=== PATIENT | female | born 1980 | race Caucasian/White ===

== ENCOUNTER 2024-01-16 19:48 | Outpatient (CLI) | payer OTHER, SELFPAY ==
[2024-01-16 20:32] LABS: Basophils # 0.1 K/mm3 (0-0.2); Basophils % 0.9 % (0.1-2.0); Eosinophils # 0.2 K/mm3 (0.0-0.4); Eosinophils % 3.5 % (0.1-12.0); Hematocrit 37.4 % (37.0-47.0); Hemoglobin 12.1 g/dL (12.2-16.2); Lymphocytes % 29.1 % (10-50); Mean Corpuscular HGB Conc 32.5 g/dL (31.8-35.4); Mean Corpuscular Hemoglobin 26.1 pg (27.0-31.2); Mean Corpuscular Volume 80.3 fl (81-99); Mean Platelet Volume 9.1 fl (7.4-10.4); Monocytes # 0.4 K/mm3 (0.1-1.0); Monocytes % 6.2 % (1.7-9.3); Neutrophils % 60.2 % (37.0-80.0); Platelet Count 361 K/mm3 (142-424); Red Blood Count 4.66 M/mm3 (4.20-5.40); Red Cell Distribution Width 14.3 % (11.5-17.5); White Blood Count 6.7 K/mm3 (4.8-10.8)
[2024-01-16 20:49] LABS: Alanine Aminotransferase 19 U/L (12-78); Albumin Level 3.9 g/dl (3.5-5.0); Albumin/Globulin Ratio 1.4 (1.1-1.8); Alkaline Phosphatase 81 U/L (38-126); Aspartate Amino Transferase 24 U/L (14-36); Bilirubin,Total 0.5 mg/dl (0.2-1.3); Blood Urea Nitrogen 11 mg/dl (7-17); Calcium 8.9 mg/dl (8.4-10.2); Carbon Dioxide 24 mmol/L (22.0-30.0); Chloride 104 mmol/L (98-107); Chol/HDL Ratio 5.4 (1-3.5); Cholesterol 217 mg/dl (140-200); Estimated Glomerular Filt Rate 110 ml/min (>60); GFR (African American) 133 ML/MIN (>60); Globulin 2.7 g/dL (1.3-3.2); Glucose 83 mg/dl (74-100); HDL Cholesterol 40 mg/dl (40-60); Sodium 133 mmol/L (136-145); Total Protein,Serum 6.6 g/dl (6.3-8.2); Triglycerides 204 mg/dl (30-150); VLDL Cholesterol 41 mg/dL (0-40)
[2024-01-16 21:01] LABS: Direct LDL Cholesterol 134.68 mg/dL (100-129)
[2024-01-16 21:06] LABS: 25-OH Vitamin D, Total 31.4 ng/mL (30-100)
[2024-01-16 21:08] LABS: Free T4 (Free Thyroxine) 0.97 ng/dl (0.78-2.19)
[2024-01-16 21:22] LABS: Thyroid Stimulating Hormone 2.06 uIU/mL (0.465-4.68)
[2024-01-16 21:42] LABS: Vitamin B12 324 pg/mL (239-931)
[2024-01-16 22:00] LABS: Hemoglobin A1C 5.3 % (4.0-6.0)
== END 2024-01-16 23:59 | disposition home or self-care (01) ==
LOC: LAB.DROPOF 19:49
PROVIDERS: PCP Nurse Practitioner; Visit Provider Nurse Practitioner
DX: E03.9 Hypothyroidism, unspecified (principal); E55.9 Vitamin D deficiency, unspecified; Z13.1 Encounter for screening for diabetes mellitus; Z13.220 Encounter for screening for lipoid disorders
CPT/HCPCS: 80050; 80053; 80061; 82306; 82607; 83036; 84439; 84443; 85025

== ENCOUNTER 2024-07-24 12:23 | Outpatient (CLI) | payer OTHER, SELFPAY ==
[2024-07-24 19:44] LABS: HCG Qualitative, Serum Negative (Negative)
[2024-07-24 19:50] LABS: Chol/HDL Ratio 4.3 (1-3.5); Cholesterol 206 mg/dl (140-200); HDL Cholesterol 48 mg/dl (40-60); Triglycerides 190 mg/dl (30-150); VLDL Cholesterol 38 mg/dL (0-40)
[2024-07-24 20:02] LABS: Direct LDL Cholesterol 124.57 mg/dL (100-129)
[2024-07-24 20:12] LABS: T4 (Thyroxine) 10.1 ug/dl (5.53-11.0)
[2024-07-24 20:25] LABS: Thyroid Stimulating Hormone 2.05 uIU/mL (0.465-4.68)
[2024-07-25 02:52] LABS: Chlamydia trachomatis Negative (Negative); Neisseria gonorrhoeae Negative (Negative); Trichomonas vaginalis Negative (Negative)
[2024-07-25 09:52] LABS: RPR W/RFX Titers Nonreactive (Nonreactive)
[2024-07-26 21:17] LABS: Neisseria gonorrhoeae, NAA Negative (Negative)
== END 2024-07-24 23:59 | disposition home or self-care (01) ==
LOC: LAB.DROPOF 07-26 12:23
PROVIDERS: PCP Family Medicine; Visit Provider Family Medicine
DX: E03.9 Hypothyroidism, unspecified (principal); E78.5 Hyperlipidemia, unspecified; Z20.2 Contact with and (suspected) exposure to infections with a predominantly sexual mode of transmission
CPT/HCPCS: 80061; 80074; 84436; 84443; 84703; 86592; 86803; 87491; 87529; 87591; 87661

== ENCOUNTER 2025-01-24 09:02 | Outpatient (CLI) | payer OTHER, SELFPAY ==
[2025-01-24 15:05] LABS: Hematocrit 37.7 % (37.0-47.0); Hemoglobin 12.0 g/dL (12.2-16.2); Immature Granulocytes % 0.3 %; Mean Corpuscular HGB Conc 31.8 g/dL (31.8-35.4); Mean Corpuscular Hemoglobin 26.3 pg (27.0-31.2); Mean Corpuscular Volume 82.5 fl (81-99); Nucleated Red Blood Cells % 0 %; Platelet Count 326 K/mm3 (142-424); Red Blood Count 4.57 M/mm3 (4.20-5.40); Red Cell Distribution Width-SD 41.1 fL; White Blood Count 8.6 K/mm3 (4.8-10.8)
[2025-01-24 15:53] LABS: Alanine Aminotransferase 18 U/L (12-78); Albumin Level 4.1 g/dl (3.5-5.0); Albumin/Globulin Ratio 1.3 (1.1-1.8); Alkaline Phosphatase 88 U/L (38-126); Anion Gap 11.2 mEq/L (5-15); Aspartate Amino Transferase 21 U/L (14-36); Bilirubin,Total 0.4 mg/dl (0.2-1.3); Blood Urea Nitrogen 17 mg/dl (7-17); Calcium 9.8 mg/dl (8.4-10.2); Carbon Dioxide 26 mmol/L (22.0-30.0); Chloride 100 mmol/L (98-107); Cholesterol 245 mg/dl (140-200); Creatinine,Serum 0.60 mg/dl (0.52-1.04); Estimated Glomerular Filt Rate 110 ml/min (>60); GFR (African American) 133 ML/MIN (>60); Globulin 3.2 g/dL (1.3-3.2); Glucose 83 mg/dl (74-100); HDL Cholesterol 49 mg/dl (40-60); Potassium 4.2 mmoL/L (3.5-5.1); Sodium 133 mmol/L (136-145); Total Protein,Serum 7.3 g/dl (6.3-8.2); Triglycerides 333 mg/dl (30-150)
[2025-01-24 16:24] LABS: Thyroid Stimulating Hormone 3.40 uIU/mL (0.465-4.68)
[2025-01-24 16:46] LABS: Hepatitis C Ab Qual. W/ RFX NEGATIVE (Negative)
== END 2025-01-24 23:59 ==
LOC: LAB.DROPOF 01-28 09:03
PROVIDERS: PCP Family Medicine; Visit Provider Family Medicine
DX: E03.9 Hypothyroidism, unspecified (principal); Z11.59 Encounter for screening for other viral diseases; E16.2 Hypoglycemia, unspecified
CPT/HCPCS: 80053; 80061; 84443; 85025; 86803; 87389

== ENCOUNTER 2025-02-28 23:50 | Emergency (ER) | payer OTHER, SELFPAY ==
--- OUTSIDE RECORDS SUMMARY | 2025-02-12 14:23 | XMS_ITS | Encounter Summary ---
Author Organization [place] [address] Care Team Providers Care Gauntlet Pairer Name Role Phone No Pcp, Per Patient Primary Care Provider Iva franco Reason for Visit * Reason Comments Foot Injury Pt c/o left foot inj ury r/t a fall on ice about 2 hours [employer]. Pt reports hearing multiple pops during fall and then when getting up. CPTA, Advil x4 about 2 hours [employer] Encounter Details Date Type Department Care Team (Late st Contact Info) Description 02/12/2025 2:23 PM EST - 02/12/2025 3:42 PM EST Emergency [facility] [address] [facility] [place] [address] Dakota Houser MD [address] [place] [id number] Closed fracture of distal end of left fibula, unspecified fracture morphology, initial encounter (Primary Dx) Discharge Disposition: Home or Self Care Social History Tobacco Use Types Packs/Day Years Used Date Smoking Tobacco: Never Smokeless Tobacco: Never Alcohol Use Standard Drinks/Week Comments No 0 (1 standard drink = 0.6 oz pur e alcohol) Overall Financial Resource Strain (CARDIA) Answe r Date Recorded How hard is it for you to pa y for the very basics like food, housing, medical care, and heating? Not very hard 12/03/2019 PHQ-2 Answer Date Recorded PHQ-2 Total Score 0 02/25/2023 Hunger Vital Sign Answer Date Recorded Within the past 12 months, y ou worried that your food would run out before you got the money to buy more. Never true 12/03/19 20 Within the past 12 months, t he food you bought just didn't last and you didn't have money to get more. Never true 12/03/2019 PRAPARE - Transportation Answer Date Re corded In the past 12 months, has l ack of transportation kept you from medical appointments or from getting medications? No 11/13 In the past 12 months, has l ack of transportation kept you from meetings, work, or from getting things needed for daily living? No 12/03/2019 Sexually Active Control Partners Comments Yes Male Comments No Sex and Gender Information Value Date Recorded Sex Assigned at Female 02/21/2025 9:10 AM EST Legal Sex Female 2:38 AM EDT Gender Identity Not on file Sexual Orientation Not on file documented as of this encounter Last Filed Vital Signs Vital Sign Reading Time Taken Comments Blood Pressure 126/89 02/12/2025 2:21 PM EST Pulse 76 02/12/2025 2:12 PM EST Temperature 36.6 C (97.9 F) 02/12/2025 2:21 PM EST Respiratory Rate 24 02/12/2025 2:12 PM EST Oxygen Saturation 100% 02/12/2025 2:12 PM EST Inhaled Oxygen Concentration - - Weight - - Height - - Body Mass Index - - documented in this encounter Functional Status * Is the person deaf or does he/she have serious difficulty hearing? Answer Date of Assessment Author No 10/02/2021 3:09 PM Freida Yañez MA * Is the person blind or does he/she have serious difficulty seeing even when wearing glasses? Answer Date of Assessment Author No 10/02/2021 3:09 PM Freida Yañez MA * Does this person have serious difficulty walking or climbing stairs? Answer Date of Assessment Author No 10/02/2021 3:09 PM Freida Yañez MA * Does this person have difficulty dressing or bathing? Answer Date of Assessment Author No 10/02/2021 3:09 PM Freida Yañez MA * Because of a physical, mental or emotional condition, does this person have difficulty doing errands alone such as visiting a doctor's office or shopping? Answer Date of Assessment Author No 10/02/2021 3:09 PM EDT Freida Wyatt MA documented as of this encounter Mental Status * Because of a physical, mental or emotional condition, does this person have serious difficulty concentrating, remembering or making decisions? Answer Entry Date Author No 10/02/2021 3:09 PM EDT Freida Wyatt MA documented in this encounter Discharge Instructions * Discharge Instructions* Melly Robbins APRN - 02/12/2025 2:50 PM EST Ibuprofen every 8 hours for pain You can take 1 Percocet every 8 hours as needed for severe pain. Do not drive or drink alcohol withtaking this medication Follow-up with orthopedics for visit to soon as possible No weightbearing until you follow-up with orthopedics * Attachments The following attachments cannot be sent through Care Everywhere. * Lower leg fracture (Haitian) documented in this encounter Medications at Time of Discharge albuterol (PROVENTIL HFA;VENTOLIN HFA) 90 mcg/actuation Inhl HFA Aerosol InhalerIndicatio ns:Nasal sinus congestion Inhale 2 Puffs into the lungs every 4 hours as needed for Wheezing. 1 Each 2 4 atorvastatin (LIPITOR) 20 mg Oral Tablet Take 20 mg by mouth daily. 5 cholecalciferol, vitamin D3, 25 mcg (1,000 unit) Oral Tablet Take 1,000 Units by mouth daily. 5 EPINEPHrine (EPIPEN) 0.3 mg/0.3 mL Inj Auto-Injector Inject 0.3 mg into the muscle as needed. 5 famotidine (PEPCID) 20 mg Oral Tablet Take 20 mg by mouth daily. 5 fexofenadine (DEVAN) 180 mg Oral Tablet Take 180 mg by mouth every 24 hours. 5 ibuprofen (ADVIL;MOTRIN) 600 mg Oral Tablet Take 1 Tablet by mouth every 8 hours as needed for Pain for up to 30 days. 30 Tablet 5 03/14/19 26 LEVOthyroxine (SYNTHROID) 25 mcg Oral TabletIndication s:Hypothyroidism (acquired) Take 1 Tablet by mouth daily. 90 Tablet 4 loratadine (CLARITIN REDITABS) 10 mg Oral Tablet, Rapid Dissolve Dissolve 10 mg by mouth daily. 5 sertraline (ZOLOFT) 100 mg Oral Tablet Take 75 mg by mouth nightly. 5 triamcinolone (KENALOG) 0.1 % Top CreamIndications :Rash Apply topically 2 times daily. 80 g 2 3 ALBUTEROL INHL Inhale into the lungs. 02/22/20 25 Ceramides 1,3,6-11 (CERAVE DAILY MOISTURIZING) Top LotionIndication s:Dry skin APPLY TOPICALLY TO AFFECTED AREA NEEDED 355 mL 3 02/22/20 25 fluticasone propionate (FLONASE) 50 mcg/actuation Nasl Harbert, SuspensionIndica tions:Nasal sinus congestion by Nasal route daily. 02/22/20 25 fluticasone propionate (FLONASE) 50 mcg/actuation Nasl Harbert, SuspensionIndica tions:Nasal sinus congestion 1 Harbert by Nasal route daily. 1 Each 2 4 02/22/20 25 hydrocortisone (ANUSOL-HC) 25 mg Rect SuppositoryIndic ations:Hemorrhoi ds, unspecified hemorrhoid type Place 1 Suppository rectally every 12 hours. 12 Suppository 2 3 02/22/20 25 hyoscyamine (ANASPAZ;LEVSIN) 0.125 mg Oral TabletIndication s:Irritable bowel syndrome with diarrhea Take 1 Tablet by mouth every 4 hours as needed for Cramping or Diarrhea. 90 Tablet 2 3 02/22/20 25 methylPREDNISolo ne (MEDROL DOSPACK) 4 mg Oral Tablets, Dose PackIndications: Nasal sinus congestion See package instructions 21 Tablet 4 02/22/20 25 omeprazole (PRILOSEC) 40 mg Oral Capsule, Delayed Release(E.C.)Ind ications:Gastroe sophageal reflux disease with esophagitis, unspecified whether hemorrhage Take 1 Capsule by mouth daily. 90 Capsule 1 3 02/22/20 25 oxyCODONE-acetam inophen (PERCOCET) 5-325 mg Oral Tablet Take 1 Tablet by mouth every 8 hours as needed for Acute Pain (R52) for up to 3 days. 9 Tablet 5 02/16/20 25 documented as of this encounter Ordered Prescriptions Prescription Sig Dispense Quantity Refills Last Filled Start Date End Date ibuprofen (ADVIL;MOTRIN) 600 mg Oral Tablet Take 1 Tablet by mouth every 8 hours as needed for Pain for up to 30 days. 30 Tablet 02/12/2025 03/14/2025 oxyCODONE-acetamin ophen (PERCOCET) 5-325 mg Oral Tablet Take 1 Tablet by mouth every 8 hours as needed for Acute Pain (R52) for up to 3 days. 9 Tablet 02/12/2025 02/15/2025 documented in this encounter Discharge Disposition Disposition Code Departure Means Destination Comment s Home or Self Residential documented in this encounter ED Notes * Melly Robbins, MEDICARE CONTACT SPECIALIST - 02/12/2025 2:09 PM EST Chief Complaint Patient presents with Foot Injury Pt c/o left foot injury r/t a fall on ice about 2 hours [employer]. Pt reports hearing multiple pops during fall and then when getting up. CPTA, Advil x4 about 2 hours [employer] Patient seen for supervising physician, Dr. Houser. Patient is a 44-year-old female who presents 2 hours after slipping on ice with her left ankle twisting underneath her. States she was wearing cowboy boots and was unable to walk afterwards. Complains of pain to the ankle and distal lower extremity. Took ibuprofen prior to arrival. Foot Injury Patient History Allergies[1] Home Medications: Prior to Admission medications Medication Sig Start Date End Date Last Dose Authorizing Provider cholecalciferol, vitamin D3, 25 mcg (1,000 unit) Oral Tablet Take 1,000 Units by mouth daily. 01/24/25 Taking Provider, Historical famotidine (PEPCID) 20 mg Oral Tablet Take 20 mg by mouth daily. 12/03/24 Taking Provider, Historical LEVOthyroxine (SYNTHROID) 25 mcg Oral Tablet Take 1 Tablet by mouth daily. 07/28/23 02/12/2025 Morning Arlene Austin DO loratadine (CLARITIN REDITABS) 10 mg Oral Tablet, Rapid Dissolve Dissolve 10 mg by mouth daily. 01/29/25 Taking Provider, Historical albuterol (PROVENTIL HFA;VENTOLIN HFA) 90 mcg/actuation Inhl HFA Aerosol Inhaler Inhale 2 Puffs into the lungs every 4 hours as needed for Wheezing. 07/27/23 Jarred Cole APRN ALBUTEROL INHL Inhale into the lungs. Patient not taking: Reported on 07/27/2023 Provider, Historical Ceramides 1,3,6-11 (CERAVE DAILY MOISTURIZING) Top Lotion APPLY TOPICALLY TO AFFECTED AREA NEEDED 10/11/22 Samanta Faye MD fluticasone propionate (FLONASE) 50 mcg/actuation Nasl Harbert, Suspension by Nasal route daily. Patient not taking: Reported on 10/06/2024 Provider, Historical fluticasone propionate (FLONASE) 50 mcg/actuation Nasl Harbert, Suspension 1 Harbert by Nasal route daily. 07/27/23 Jarred Cole APRN hydrocortisone (ANUSOL-HC) [address] 1 Suppository rectally every 12 hours. Patient not taking: Reported on 07/27/2023 02/25/23 Samanta Faey MD hyoscyamine (ANASPAZ;LEVSIN) 0.125 mg Oral Tablet Take 1 Tablet by mouth every 4 hours as needed for Cramping or Diarrhea. Patient not taking: Reported on 07/27/2023 02/25/23 Samanta Faye MD ibuprofen (ADVIL;MOTRIN) 600 mg Oral Tablet Take 1 Tablet by mouth every 8 hours as needed for Painfor up to 30 days. 02/12/25 03/14/25 Melly Robbins APRN methylPREDNISolone (MEDROL DOSPACK) 4 mg Oral Tablets, Dose Pack See package instructions Patient not taking: Reported on 10/06/2024 07/27/23 Jarred Cole APRN omeprazole (PRILOSEC) 40 mg Oral Capsule, Delayed Release(E.C.) Take 1 Capsule by mouth daily. Patient not taking: Reported on 10/06/2024 02/25/23 Samanta Faye MD oxyCODONE-acetaminophen (PERCOCET) 5-325 mg Oral Tablet Take 1 Tablet by mouth every 8 hours as needed for Acute Pain (R52) for up to 3 days. 02/12/25 02/15/25 Melly Robbins APRN triamcinolone (KENALOG) 0.1 % Top Cream Apply topically 2 times daily. Patient not taking: Reported on 07/27/2023 02/25/23 Samanta Faye MD Past Medical History: Past Medical History[2] Social History: reports that she has never smoked. She has never used smokeless tobacco. She reports being sexually active and has had partner(s) who are male. She reports that she does not drink alcohol and does not use drugs. E-Cigarettes (such as Vapes or Juul) E-Cigarette Use Never User Family History: Family History[3] Surgical History: Surgical History[4] Review of Systems Review of Systems Constitutional: Negative for appetite change, chills, diaphoresis and fatigue. Musculoskeletal: Positive for arthralgias and joint swelling. Negative for gait problem. Left ankle swelling and pain. Skin: Negative for color change and wound. Physical Exam Blood pressure 126/89, pulse 76, temperature 97.9 ??F (36.6 ??C), temperature source Oral, resp. rate (!) 24, SpO2 100%, not currently . Physical Exam Vitals reviewed. Constitutional: General: She is not in acute distress. Appearance: She is not ill-appearing, toxic-appearing or diaphoretic. HENT: Head: Normocephalic and atraumatic. Nose: Nose normal. Mouth/Throat: Mouth: Mucous membranes are moist. Eyes: Pupils: Pupils are equal, round, and reactive to light. Cardiovascular: Rate and Rhythm: Normal rate. Pulmonary: Effort: Pulmonary effort is normal. Abdominal: Palpations: Abdomen is soft. Musculoskeletal: General: Swelling, tenderness and signs of injury present. No deformity. Right lower leg: Edema present. Comments: Pain and swelling to the bilateral malleoli of the left ankle. No ecchymosis or erythema.Patient is unable to flex or extend due to pain. She is able to wiggle her toes and has 2+ pedal pulse. Full sensation in distal toes. Good cap refill. There are some tenderness to palpation in the distal anterior and posterior lower extremity. Compartments are soft. Skin: General: Skin is warm and dry. Capillary Refill: Capillary refill takes less than 2 seconds. Neurological: General: No focal deficit present. Mental Status: She is alert and oriented to person, place, and time. Procedures Radiology/EKG/Labs: Results for orders placed or performed during the hospital encounter of 02/12/25 XR ANKLE LEFT AP LATERAL AND OBLIQUE Narrative XR ANKLE LEFT AP LATERAL AND OBLIQUE, 02/12/2025 2:41 PM CLINICAL HISTORY: -injury COMPARISON: None. PROCEDURE COMMENTS: XR ANKLE LEFT AP LATERAL AND OBLIQUE FINDINGS: There is a minimally displaced fracture involving the distal fibula at the level the ankle joint. Ankle mortise alignment is within normal limits on provided views. Soft tissue swelling around the ankle. Impression Minimally displaced distal fibular fracture at the level the ankle joint. - Note: Radiology results need to be interpreted within a comprehensive clinical context. If you have questions about the radiology report, please contact the office of the ordering clinician. XR FOOT LEFT AP LATERAL AND OBLIQUE Narrative XR FOOT LEFT AP LATERAL AND OBLIQUE, 02/12/2025 2:41 PM CLINICAL HISTORY: -injury COMPARISON: None. PROCEDURE COMMENTS: XR FOOT LEFT AP LATERAL AND OBLIQUE FINDINGS: No acute fracture or traumatic malalignment. Joint spaces overall well-maintained for age. No periostitis. Impression No acute bony abnormality of the foot. - Note: Radiology results need to be interpreted within a comprehensive clinical context. If you have questions about the radiology report, please contact the office of the ordering clinician. XR TIBIA FIBULA LEFT AP AND LATERAL Narrative XR TIBIA FIBULA LEFT AP AND LATERAL, 02/12/2025 2:49 PM CLINICAL HISTORY: -fall onto left ankle, distal ankle pain COMPARISON: None. PROCEDURE COMMENTS: Orthogonal views of the tibia and fibula. Minimum of two images. FINDINGS: Minimally displaced distal fibular fracture. No proximal fracture. Impression Minimally displaced distal fibular fracture. This examination does not constitute a diagnostic evaluation of the knee or ankle. If the patient has symptoms localizing to those areas then supplemental dedicated imaging recommended. - Note: Radiology results need to be interpreted within a comprehensive clinical context. If you have questions about the radiology report, please contact the office of the ordering clinician. ED Course: Appropriate laboratory and radiology studies reviewed ED Course as of 02/12/25 1626 Others' Documentation e Feb 12, 2025 5050 I, Dakota Houser MD, independently reviewed patient's x-ray left ankle with study showing distal fibular fracture. Of note, this interpretation is independent of radiologist read and is not intended to supersede that read. [JM] ED Course User Index [JM] Dakota Houser MD Medications Ordered: Medications oxyCODONE-acetaminophen (PERCOCET) 5-325 mg per tablet 1 Tablet (1 Tablet Oral Given 02/12/25 4765) ED Clinical Impression: 1. Closed fracture of distal end of left fibula, unspecified fracture morphology, initial encounter MDM Medical Decision Making Patient is a well-appearing 44-year-old female who presents for evaluation of left ankle pain aftera fall today 2 hours prior to arrival. On exam there is objective swelling around the bilateral malleoli. Patient is unable to flex or extend the ankle due to pain. No objective signs of compartment syndrome. She is neurovascularly intactdistally. There is no obvious deformity. X-rays revealed a minimally displaced fibula fracture without any bony abnormality of the tibia or the foot bones. Patient was treated with Percocet and placed in a short leg posterior and stirrup splint. She was given crutches and instructed on nonweightbearing and to follow-up with orthopedics to soon as possible for further management. She is discharged with a prescription for ibuprofen and a short course of Percocet. She is in agreement with the plan. Patient was discharged in stable condition. Prescriptions Written: ED Current Prescriptions Medication Dispense Auth. Provider ibuprofen (ADVIL;MOTRIN) 600 mg Oral Tablet 30 Tablet Blank, Melly Deal, MEDICARE CONTACT SPECIALIST oxyCODONE-acetaminophen (PERCOCET) 5-325 mg Oral Tablet 9 Tablet Blank, Melly Deal, MEDICARE CONTACT SPECIALIST At time of discharge patient appears stable, nontoxic, tolerating PO and appropriate for outpatientmanagement. Strict return precautions discussed for new or worsening symptoms. Condition at Discharge/Transfer from Department: Stable In cases where narcotics are prescribed, LENNY/INSPECT report was obtained and reviewed. After examining available information, and risks of prescribing or dispensing controlled substances was explained to the patient (including non- treatment or other treatment), it is considered medically appropriate to administer narcotics as prescribed. This chart was completed using voice recognition technology and may contain unintended errors [1] Allergies Allergen Reactions Mucinex [Guaifenesin] Anaphylaxis Droperidol Other (See Comments) Made her very loopy, anxious, fatigue Vicodin [Hydrocodone-Acetaminophen] Rash [2] Past Medical History: Diagnosis Date Disorder of thyroid [3] Family History Problem Relation Age of Onset Hypertension Mother Cancer Paternal Aunt Heart Disease Maternal Grandmother Thyroid Disease Maternal Grandmother Diabetes Paternal Grandmother [4] Past Surgical History: Procedure Laterality Date APPENDECTOMY OVARY SURGERY unknown right TUBAL LIGATION 2010 Melly Robbins APRN 02/12/25 1626 Cosigned by Dakota Houser MD at 02/15/2025 8:05 AM EST Associated attestation - Dakota Houser MD - 02/15/2025 8:05 AM EST [place]akota MD, independently saw and evaluated patient with JENSEN. I have contributed to patient's medical decision making and agree with plan. ED Course as of 02/15/25 0805 Dakota Houser's Documentation TueFeb 12, 2025 0744 Dakota Linares MD, independently reviewed patient's x-ray left ankle with study showing distal fibular fracture. Of note, this interpretation is independent of radiologist read and is not intended to supersede that read. documented in this encounter Plan of Treatment Upcoming Encounters Date Type Department Care Team (Late st Contact Info) Description 03/05/2025 9:30 [place] [address] Ulises Ayoub PA [address] [place] [address] documented as of this encounter Goals Goal Patient Goal Type Associated Problems Recent Progress Patient-Stated? Author Maintain a healthy diet, exercise regularly and maintain an ideal body weight General No Nel Madden RMA documented as of this encounter Procedures Procedure Name Priority Date/Time Associated Diagnosis Comments XR TIBIA FIBULA LEFT AP AND LATERAL LOVE 02/12/2025 2:49 PM EST XR FOOT LEFT AP LATERAL AND OBLIQUE LOVE 02/12/2025 2:41 PM EST XR ANKLE LEFT AP LATERAL AND OBLIQUE LOVE 02/12/2025 2:41 PM EST documented in this encounter Results * XR TIBIA FIBULA LEFT AP AND LATERAL (02/12/2025 2:49 PM EST) Anatomical Region Laterality Modality Leg Radiographic Jahaira ging 02/12/2025 2:49 PM EST Impressions 02/12/2025 2:55 PM EST Minimally displaced distal fibular fracture. This examination does not constitute a diagnostic evaluation of the knee or ankle. If the patient has symptoms localizing to those areas then supplemental dedicated imaging recommended. - Note: Radiology results need to be interpreted within a comprehensive clinical context. If you have questions about the radiology report, please contact the office of the ordering clinician. Narrative 02/12/2025 2:55 PM EST XR TIBIA FIBULA LEFT AP AND LATERAL, 02/12/2025 2:49 PM CLINICAL HISTORY: -fall onto left ankle, distal ankle pain COMPARISON: None. PROCEDURE COMMENTS: Orthogonal views of the tibia and fibula. Minimum of two images. FINDINGS: Minimally displaced distal fibular fracture. No proximal fracture. Procedure Note Ton Arnett MD - 02/12/2025 XR TIBIA FIBULA LEFT AP AND LATERAL, 02/12/2025 2:49 PM CLINICAL HISTORY: -fall onto left ankle, distal ankle pain COMPARISON: None. PROCEDURE COMMENTS: Orthogonal views of the tibia and fibula. Minimum oftwo images. FINDINGS: Minimally displaced distal fibular fracture. No proximal fracture. IMPRESSION: Minimally displaced distal fibular fracture. This examination does not constitute a diagnostic evaluation of the kneeor ankle. If the patient has symptoms localizing to those areas thensupplemental dedicated imaging recommended. - Note: Radiology results need to be interpreted within a comprehensiveclinical context. If you have questions about the radiology report, please contactthe office of the ordering clinician. Melly Robbins [facility] DIAGNOSTIC IMAGING ORDERABLES Final Result * XR FOOT LEFT AP LATERAL AND OBLIQUE (02/12/2025 2:41 PM EST) Anatomical Region Laterality Modality Foot Radiographic Jahaira ging 02/12/2025 2:41 PM EST Impressions 02/12/2025 2:55 PM EST No acute bony abnormality of the foot. - Note: Radiology results need to be interpreted within a comprehensive clinical context. If you have questions about the radiology report, please contact the office of the ordering clinician. Narrative 02/12/2025 2:55 PM EST XR FOOT LEFT AP LATERAL AND OBLIQUE, 02/12/2025 2:41 PM CLINICAL HISTORY: -injury COMPARISON: None. PROCEDURE COMMENTS: XR FOOT LEFT AP LATERAL AND OBLIQUE FINDINGS: No acute fracture or traumatic malalignment. Joint spaces overall well-maintained for age. No periostitis. Procedure Note Ton Arnett MD - 02/12/2025 XR FOOT LEFT AP LATERAL AND OBLIQUE, 02/12/2025 2:41 PM CLINICAL HISTORY: -injury COMPARISON: None. PROCEDURE COMMENTS: XR FOOT LEFT AP LATERAL AND OBLIQUE FINDINGS: No acute fracture or traumatic malalignment. Joint spaces overall well-maintained for age. No periostitis. IMPRESSION: No acute bony abnormality of the foot. - Note: Radiology results need to be interpreted within a comprehensiveclinical context. If you have questions about the radiology report, please contactthe office of the ordering clinician. Melly Deal Itzel [facility] DIAGNOSTIC IMAGING ORDERABLES Final Result * XR ANKLE LEFT AP LATERAL AND OBLIQUE (02/12/2025 2:41 PM EST) Anatomical Region Laterality Modality Ankle Radiographic Jahaira ging 02/12/2025 2:41 PM EST Impressions 02/12/2025 2:54 PM EST Minimally displaced distal fibular fracture at the level the ankle joint. - Note: Radiology results need to be interpreted within a comprehensive clinical context. If you have questions about the radiology report, please contact the office of the ordering clinician. Narrative 02/12/2025 2:54 PM EST XR ANKLE LEFT AP LATERAL AND OBLIQUE, 02/12/2025 2:41 PM CLINICAL HISTORY: -injury COMPARISON: None. PROCEDURE COMMENTS: XR ANKLE LEFT AP LATERAL AND OBLIQUE FINDINGS: There is a minimally displaced fracture involving the distal fibula at the level the ankle joint. Ankle mortise alignment is within normal limits on provided views. Soft tissue swelling around the ankle. Procedure Note Ton Arnett MD - 02/12/2025 XR ANKLE LEFT AP LATERAL AND OBLIQUE, 02/12/2025 2:41 PM CLINICAL HISTORY: -injury COMPARISON: None. PROCEDURE COMMENTS: XR ANKLE LEFT AP LATERAL AND OBLIQUE FINDINGS: There is a minimally displaced fracture involving the distal fibula at thelevel the ankle joint. Ankle mortise alignment is within normal limits onprovided views. Soft tissue swelling around the ankle. IMPRESSION: Minimally displaced distal fibular fracture at the level the anklejoint. - Note: Radiology results need to be interpreted within a comprehensiveclinical context. If you have questions about the radiology report, please contactthe office of the ordering clinician. Melly Robbins APRN [facility] DIAGNOSTIC IMAGING ORDERABLES Final Result documented in this encounter Visit Diagnoses Diagnosis Closed fracture of distal end of left fibula, unspecified fracture morphology, initial encounter- Primary documented in this encounter Administered Medications Inactive Administered Medications - up to 1 most recent administrations Medication Order MAR Action Action Date Dose Rate Site oxyCODONE-acetaminophen (PERCOCET) 5-325 mg per tablet 1 Tablet 1 Tablet, Oral, ONCE, 1 dose, On Tue02/12/25 at 1445, *Maximum adult dose of acetaminophen is 4000 mg from all sources in 24 hours.* Given 02/12/2025 2:47 PM EST 1 Tablet documented in this encounter Historical Medications * This list may reflect changes made after this encounter. loratadine (CLARITIN REDITABS) 10 mg Oral Tablet, Rapid Dissolve Dissolve 10 mg by mouth daily. 01/29/2025 famotidine (PEPCID) 20 mg Oral Tablet Take 20 mg by mouth daily. 12/03/2024 cholecalciferol, vitamin D3, 25 mcg (1,000 unit) Oral Tablet Take 1,000 Units by mouth daily. 01/24/2025 added in this encounter Active and Recently Administered Medications Times are shown in EST. Scheduled Medication Order 02/10/2025 02/11/2025 02/12/2025 oxyCODONE-acetaminophen (PERCOCET) 5-325 mg per tablet 1 Tablet (COMPLETED) 1 Tablet, Oral, ONCE, 1 dose, On Tue02/12/25 at 1445, *Maximum adult dose of acetaminophen is 4000 mg from all sources in 24 hours.* 1447 (Given - Provid er: Garfield Sabillon RN) documented in this encounter Orders Nursing Count Last Ordered Date First Orde red Date ED [facility] DME 1 02/12/2025 SPLINT, CUSTOM 2 02/12/2025 documented in this encounter Care Teams [employer] Relationship Specialty Start Date End Date No Pcp, Per Patient PCP - General 09/29/24 documented as of this encounter
--- OUTSIDE RECORDS SUMMARY | 2025-02-15 13:26 | XMS_ITS | Encounter Summary ---
Author Organization [place] [address] Care Team Providers Care Welder/Fitter Name Role Phone No Pcp, Per Patient Primary Care Provider Iva franco Reason for Visit * Reason Comments Ankle Pain Pt to ED with /co le ft ankle pain. Pt fell breaking her ankle 3 days ago. Pt fell again yesterday. Pt has not seen ortho yet. Encounter Details Date Type Department Care Team (Late st Contact Info) Description 02/15/2025 1:26 PM EST - 02/15/2025 3:13 PM EST Emergency [facility] [address] [place] [address] Lionel Rodriguez MD [address] [place] [id number] Traumatic closed displaced fracture of distal end of left tibia with fibula, sequela (Primary Dx); Fall on ice; Seasonal allergic rhinitis, unspecified trigger Discharge Disposition: Home or Self Care Social [...] Sign Reading Time Taken Comments Blood Pressure 131/79 02/15/2025 1:32 PM EST Pulse 75 02/15/2025 1:27 PM EST Temperature 36.8 C (98.3 F) 02/15/2025 1:32 PM EST Respiratory Rate 16 02/15/2025 1:27 PM EST Oxygen Saturation 97% 02/15/2025 1:27 PM EST Inhaled Oxygen Concentration - - Weight 81.6 kg (180 lb) 02/15/2025 1:27 PM EST Height 157.5 cm (5' 2 ) 02/15/2025 1:27 PM EST Body Mass Index 32.92 02/15/2025 1:27 PM EST documented in this encounter Functional Status * Is the person deaf or does he/she have serious difficulty hearing? Answer Date of Assessment Author No 10/02/2021 3:09 PM EDFreida Valenzuela MA * Is the person blind or does he/she have serious difficulty seeing even when wearing glasses? Answer Date of Assessment Author No 10/02/2021 3:09 PM Freida Yñaez MA * Does this person have serious difficulty walking or climbing stairs? Answer Date of Assessment Author No 10/02/2021 3:09 PM EDT Freida Wyatt MA * Does this person have difficulty dressing or bathing? Answer Date of Assessment Author No 10/02/2021 3:09 PM EDT Freida Wyatt MA * Because of a physical, mental [...] this encounter Discharge Instructions * Discharge Instructions* Jennifer Naik, SHERI - 02/15/2025 2:47 PM EST Keep walking boot in place at all times while up. Wear jesu wraps to reduce swelling until cleared by the bone doctor. Use the walker for weight bearing as tolerated. Only use the crutches when there is low risk of falling, particularly on wet or icy surfaces. Elevate the injury. May apply ice packs for 20 minutes at a time every hour while awake. Do not letthe ice packs leak on the splint. The ice packs should just keep area cool, it is not necessary to freeze the skin. Take ibuprofen for swelling and pain. May also take tylenol. Keep appointment with ortho doctor for follow-up as scheduled. Return to the emergency department or recheck right away for any worsening symptoms such as severe pain, severe swelling, if the area gets cold blue or numb, or for any new or rapidly changing symptoms. For allergic rhinitis: Drink plenty of fluids, teas, soups to keep mucus thin. Use fluticasone nasal spray daily, 2 sprays in each nostril to keep congestion down, this helps with ear and sinus congestion. Continue Claritin daily for allergy control. Should start to feel better in 2-3 days. Recheck with family doctor in 5-7 days if not improving. Return to the ED for any worsening symptoms, severe pain, high fever, shortness of breath, chest pain, abdomen pain, vomiting, fainting, or for any new or rapidly changing symptoms. documented in this encounter Medications at Time [...] mg by mouth every 24 hours. 5 fluticasone propionate (FLONASE) 50 mcg/actuation Nasl Packwood, Suspension 2 Sprays by Nasal route daily for 14 days. 15.8 mL 5 03/01/20 25 ibuprofen (ADVIL;MOTRIN) 600 mg Oral Tablet Take [...] 25 fluticasone propionate (FLONASE) 50 mcg/actuation Nasl Packwood, SuspensionIndica tions:Nasal sinus congestion by Nasal route daily. 02/22/20 25 fluticasone propionate (FLONASE) 50 mcg/actuation Nasl Packwood, SuspensionIndica tions:Nasal sinus congestion 1 Packwood by Nasal route daily. 1 Each 2 [...] Refills Last Filled Start Date End Date fluticasone propionate (FLONASE) 50 mcg/actuation Nasl Packwood, Suspension 2 Sprays by Nasal route daily for 14 days. 15.8 mL 02/15/2025 03/01/2025 documented in this encounter Discharge Disposition Disposition Code Departure Means Destination Comment s Home or Self Group Home documented in this encounter ED Notes * Nancy Watson RN - 02/15/2025 1:33 PM EST Pt here f/u with ankle pain, stating she is unable to get in with ortho until next week and has fallen again and thinks she has injured the leg more. Wants splint readjusted causing pain in leg. * Jennifer Naik APRN - 02/15/2025 1:23 PM EST CHIEF COMPLAINT Chief Complaint Patient presents with ??? Ankle Pain Pt to ED with /co left ankle pain. Pt fell breaking her ankle 3 days ago. Pt fell again yesterday. Pt has not seen ortho yet. HPI Lorie Contreras, 44 y.o. presents for evaluation of increased pain and swelling to the left lower leg and ankle over the past 2 days. Patient states she fell in the ice 2 or 3 days ago, she was seen hereand told that she had multiple fractures. She states that she fell again on the ice yesterday when she was trying to get into her truck to go to the orthopedist. She reports that she reinjured the left leg and ankle. She states that she noted that she had enough swelling that she felt like the splint was too tight. She removed the splint and reapplied it and reports that the splint is botheringher. She reports that she has had difficulty ambulating with the crutches because they have been very slippery, particularly with the ice. She states that she did reschedule that orthopedist appointment. She denies any other injuries. Denies striking her head, denies any back or other extremity injury with the second fall. She has been taking the Percocet she was prescribed, taking approximately 1 daily. She reports the pain has been significant but has been avoiding taking too much pain medications. Additionally patient reports that she has had increased nasal congestion and postnasal drip and waswondering if she could get something to prevent this from turning into bronchitis. She states she does take [id number] antihistamine daily. Patient denies any wheezes, fever, shortness of breath. She does report a mild cough. Significant co-morbidities: Allergic rhinitis, hypothyroidism, hyperlipidemia, intermittent mild asthma, history of tubal ligation and appendectomy Significant social/determinants of health: Non-smoker History is from the patient and chart review. REVIEW OF SYSTEMS See HPI for further details. Review of systems otherwise negative. PAST MEDICAL HISTORY Past Medical History[1] FAMILY HISTORY Family History[2] SOCIAL HISTORY Social History[3] Social Drivers of Health with Concerns Alcohol Use: Not on file Physical Activity: Not on file Stress: Not on file Social Connections: Not on file Intimate Partner Violence: Not on file Housing Stability: Not on file Utilities: Not on file Health Literacy: Not on file SURGICAL HISTORY Surgical History[4] CURRENT MEDICATIONS Medications ordered prior to the current encounter[5] ALLERGIES Allergies as of 02/15/2025 - Verified 02/15/2025 Allergen Reaction Noted ??? Mucinex [guaifenesin] Anaphylaxis 02/12/2025 ??? Droperidol Other (See Comments) 02/25/2023 ??? Vicodin [hydrocodone-acetaminophen] Rash 08/03/2015 PHYSICAL EXAM VITAL SIGNS: Vitals: 02/15/25 1327 02/15/25 1330 02/15/25 1332 BP: 137/79 131/79 BP Location: Right arm Patient Position: Semi Fowlers Pulse: 75 Resp: 16 Temp: 98.3 ??F (36.8 ??C) TempSrc: Oral SpO2: 97% Weight: 180 lb (81.6 kg) Height: 5' 2 (1.575 m) Body mass index is 32.92 kg/m??. Constitutional: Well developed, Well nourished, No acute distress, Non-toxic appearance. HENT: Normocephalic, Atraumatic, Bilateral external ears normal, bilateral TMs are intact with air-fluid levels, negative tragus or mastoid tenderness, tonsils are absent surgically, positive cobblestoning noted in posterior pharynx, speech is clear, oropharynx moist, No oral exudates, Nose normal.Nontender sinuses. Eyes: PERRLA, EOMI, Conjunctiva normal, No discharge. Neck: Normal range of motion, Supple, No stridor. Cardiovascular: Normal heart rate Thorax & Lungs: Normal respiratory effort, No respiratory distress, No wheezing, no rhonchi, nocough Abdomen: No tenderness Skin: Warm, Dry, No erythema, No rash. Back: No midline tenderness, No CVA tenderness. Extremities: Intact distal pulses, No cyanosis, No clubbing, left foot with 1+ edema, positive bruising noted at bilateral malleoli, with bilateral malleolar edema and yellowish discoloration runningfrom the mid tib-fib to the ankle. Generalized point tenderness bilaterally to the malleoli and to the anterior tib-fib. Left knee is intact without point tenderness, edema and with good range of motion. Reduced range of motion of left ankle. Musculoskeletal: Otherwise, good range of motion in all other major joints. No tenderness to palpation or major deformities noted. Neurologic: Alert & oriented, Normal motor function, Normal sensory function, No focal deficitsnoted. EKG/LAB/RADIOLOGY/PROCEDURES Results for orders placed or performed during the hospital encounter of 02/15/25 XR ANKLE LEFT AP LATERAL AND OBLIQUE Narrative XR ANKLE LEFT AP LATERAL AND OBLIQUE, 02/15/2025 2:05 PM CLINICAL HISTORY: -fell again, recent fracture to same ankle COMPARISON: None. PROCEDURE COMMENTS: XR ANKLE LEFT AP LATERAL AND OBLIQUE FINDINGS: The current fracture of the distal fibula with minimal posterior translation of 2 mm unchanged alignment from the previous study. Ankle mortise remains congruent. No soft tissue gas. No new fracture. Impression Unchanged alignment of distal fibular fracture. No new fracture. - Note: Radiology results need to be interpreted within a comprehensive clinical context. If you have questions about the radiology report, please contact the office of the ordering clinician. XR TIBIA FIBULA LEFT AP AND LATERAL Narrative XR TIBIA FIBULA LEFT AP AND LATERAL, 02/15/2025 2:12 PM CLINICAL HISTORY: -concern for new fracture, fell with re-injury with recent fracture COMPARISON: None. PROCEDURE COMMENTS: Orthogonal views of the tibia and fibula. Minimum of two images. FINDINGS: Obliquely oriented fracture noted at the distal fibula is unchanged in alignment. No new fracture. Soft tissue swelling is present but no soft tissue gas. Impression Unchanged alignment of distal fibular fracture. No new fracture. This examination does not constitute a diagnostic evaluation of the knee or ankle. If the patient has symptoms localizing to those areas then supplemental dedicated imaging recommended. - Note: Radiology results need to be interpreted within a comprehensive clinical context. If you have questions about the radiology report, please contact the office of the ordering clinician. COURSE & MEDICAL DECISION MAKING Pertinent Labs & Imaging studies reviewed. (See chart for details) Lorie Contreras , 44 y.o., presents for evaluation of increasing pain, swelling, and reinjury of left ankle and left lower leg on ice, as described above. Patient is afebrile, non-toxic, with no increased work of breathing, is oxygenating well and is hemodynamically stable. Patient is neurovascularly intact, there is significant swelling and discoloration of the left lower leg and ankle. This is an isolated injury. There is no clinical evidence of pne umonia. There is no evidence of otitis media or sinusitis. There is no clinical evidence of asthma exacerbation patient is not tachycardic, does not present with shortness of breath or chest pain to suggest development of PE. Exam is consistent with: Recent injury with nondisplaced tibial fracture of the left lower leg withreinjury. Allergic rhinitis. Differential diagnoses: New fracture, displacement of known fracture Acute illness: Yes Exacerbation of chronic condition: Likely exacerbation of allergic rhinitis ED Course as of 02/15/25 1506 Jennifer Naik's Documentation TueFeb 15, 2025 1427 Left ankle and tib/fib x-rays per radiologist: The current fracture of the distal fibula with minimal posterior translation of 2 mm unchanged alignment from the previous study. Ankle mortise remains congruent. No soft tissue gas. No new fracture. 1431 Since patient is not tolerating the posterior and sugar tong splint and has fallen again with the crutches, in order to prevent a subsequent fall will change the immobilization strategy. Will place patient in cotton cast to reduce swelling, a CAM boot and provide a walker for weight bearing astolerated since the fracture is isolated to the potentially non-weight bearing fibula. 1453 Neurovascular intact /stable after splinting as compared to prior to splinting; splint is appropriately placed. 1506 Patient was offered a walker but changed her mind about it. She declined the walker for now. Patient advised to add fluticasone to her allergic rhinitis regimen. Patient instructed on use of CAM boot, walker, and advised weight bearing as tolerated with use of walker will provide more safety and prevent further falls. She was also advised to keep appointment she has already scheduled with the orthopedist. ED Current Prescriptions Medication Dispense Auth. Provider fluticasone propionate (FLONASE) 50 mcg/actuation Nasl Packwood, Suspension 15.8 mL Tacy, Jennifer M, CLIENT BUSINESS MANAGER Patient is advised on home care and to follow up with PCP and ortho in next 3-4 days. The patient is advised to return for worsening symptoms; is in agreement with treatment plan. FINAL IMPRESSION 1. Traumatic closed displaced fracture of distal end of left tibia with fibula, sequela 2. Fall on ice 3. Seasonal allergic rhinitis, unspecified trigger Patient's condition at disposition: stable This chart was completed using voice recognition technology and may contain unintended errors Jennifer Naik, CLIENT BUSINESS MANAGER 02/15/25 3144 [1] Past Medical History: Diagnosis Date ??? Disorder of thyroid [2] Family History Problem Relation Age of Onset ??? Hypertension Mother ??? Cancer Paternal Aunt ??? Heart Disease Maternal Grandmother ??? Thyroid Disease Maternal Grandmother ??? Diabetes Paternal Grandmother [3] Social History Socioeconomic History ??? Marital status: Single Spouse name: None ??? Number of children: None ??? Years of education: None ??? Highest education level: None Tobacco Use ??? Smoking status: Never ??? Smokeless tobacco: Never Vaping Use ??? Vaping status: Never Used Substance and Sexual Activity ??? Alcohol use: No ??? Drug use: No ??? Sexual activity: Yes Partners: Male Social Drivers of Health Financial Resource Strain: Low Risk (12/03/2019) Overall Financial Resource Strain (CARDIA) ??? Difficulty of Paying Living Expenses: Not very hard Food Insecurity: No Food Insecurity (12/03/2019) Hunger Vital Sign ??? Worried About Running Out of Food in the Last Year: Never true ??? Ran Out of Food in the Last Year: Never true Transportation Needs: No Transportation Needs (12/03/2019) PRAPARE - Transportation ??? Lack of Transportation (Medical): No ??? Lack of Transportation (Non-Medical): No [4] Past Surgical History: Procedure Laterality Date ??? APPENDECTOMY ??? OVARY SURGERY unknown right ??? TUBAL LIGATION 2010 [5] No current facility-administered medications on file prior to encounter. Current Outpatient Medications on File Prior to Encounter Medication Sig Dispense Refill ??? albuterol (PROVENTIL HFA;VENTOLIN HFA) 90 mcg/actuation Inhl HFA Aerosol Inhaler Inhale 2 Puffsinto the lungs every 4 hours as needed for Wheezing. 1 Each 2 ??? ALBUTEROL INHL Inhale into the lungs. (Patient not taking: Reported on 07/27/2023) ??? Ceramides 1,3,6-11 (CERAVE DAILY MOISTURIZING) Top Lotion APPLY TOPICALLY TO AFFECTED AREA NEEDED 355 mL 0 ??? cholecalciferol, vitamin D3, 25 mcg (1,000 unit) Oral Tablet Take 1,000 Units by mouth daily. ??? famotidine (PEPCID) 20 mg Oral Tablet Take 20 mg by mouth daily. ??? fluticasone propionate (FLONASE) 50 mcg/actuation Nasl Packwood, Suspension by Nasal route daily. (Patient not taking: Reported on 10/06/2024) ??? fluticasone propionate (FLONASE) 50 mcg/actuation Nasl Packwood, Suspension 1 Packwood by Nasal routedaily. 1 Each 2 ??? hydrocortisone (ANUSOL-HC) [address] 1 Suppository rectally every 12 hours. (Patient not taking: Reported on 07/27/2023) 12 Suppository 2 ??? hyoscyamine (ANASPAZ;LEVSIN) 0.125 mg Oral Tablet Take 1 Tablet by mouth every 4 hours as needed for Cramping or Diarrhea. (Patient not taking: Reported on 07/27/2023) 90 Tablet 2 ??? ibuprofen (ADVIL;MOTRIN) 600 mg Oral Tablet Take 1 Tablet by mouth every 8 hours as needed for Pain for up to 30 days. 30 Tablet 0 ??? LEVOthyroxine (SYNTHROID) 25 mcg Oral Tablet Take 1 Tablet by mouth daily. 90 Tablet 0 ??? loratadine (CLARITIN REDITABS) 10 mg Oral Tablet, Rapid Dissolve Dissolve 10 mg by mouth daily. ??? methylPREDNISolone (MEDROL DOSPACK) 4 mg Oral Tablets, Dose Pack See package instructions (Patient not taking: Reported on 10/06/2024) 21 Tablet 0 ??? omeprazole (PRILOSEC) 40 mg Oral Capsule, Delayed Release(E.C.) Take 1 Capsule by mouth daily. (Patient not taking: Reported on 10/06/2024) 90 Capsule 1 ??? oxyCODONE-acetaminophen (PERCOCET) 5-325 mg Oral Tablet Take 1 Tablet by mouth every 8 hours asneeded for Acute Pain (R52) for up to 3 days. 9 Tablet 0 ??? triamcinolone (KENALOG) 0.1 % Top Cream Apply topically 2 times daily. (Patient not taking: Reported on 07/27/2023) 80 g 2 Cosigned by Lionel Rodriguez MD at 02/17/2025 11:55 AM EST Associated attestation - Lionel Rodriguez MD - 02/17/2025 11:55 AM EST I have reviewed the chief complaint and history of the present illness and review of systems as well as the past medical/social/family history sections for this patient. I have participated in the care of this patient. I personally approve the management plan for this patient and take responsibility for the patient management. I interpreted EKG/x-rays independently and the results were as: X-ray ankle left AP lateral oblique 2:05 PM unchanged alignment of distal fibular fracture no new fracture X-ray tibia fibula left AP and lateral 2:12 PM no significant change in alignment, no new fracture This chart was completed using voice recognition technology and may contain unintended errors documented in this encounter Plan of Treatment Upcoming Encounters Date Type Department Care Team (Late st Contact Info) Description 03/05/2025 9:30 AM [place] [address] Ulises Ayoub PA [address] [place] [address] documented as of this encounter Goals Goal Patient Goal Type Associated Problems Recent Progress Patient-Stated? Author Maintain a healthy diet, exercise regularly and maintain an ideal body weight General No Nel Madden RMA documented as of this encounter Procedures Procedure Name Priority Date/Time Associated Diagnosis Comments XR TIBIA FIBULA LEFT AP AND LATERAL LOVE 02/15/2025 2:12 PM EST XR ANKLE LEFT AP LATERAL AND OBLIQUE LOVE 02/15/2025 2:05 PM EST documented in this encounter Results * XR TIBIA FIBULA LEFT AP AND LATERAL (02/15/2025 2:12 PM EST) Anatomical Region Laterality Modality Leg Radiographic Jahaira ging 02/15/2025 2:12 PM EST Impressions 02/15/2025 2:15 PM EST Unchanged alignment of distal fibular fracture. No new fracture. This examination does not constitute a diagnostic evaluation of the knee or ankle. If the patient has symptoms localizing to those areas then supplemental dedicated imaging recommended. - Note: Radiology results need to be interpreted within a comprehensive clinical context. If you have questions about the radiology report, please contact the office of the ordering clinician. Narrative 02/15/2025 2:15 PM EST XR TIBIA FIBULA LEFT AP AND LATERAL, 02/15/2025 2:12 PM CLINICAL HISTORY: -concern for new fracture, fell with re-injury with recent fracture COMPARISON: None. PROCEDURE COMMENTS: Orthogonal views of the tibia and fibula. Minimum of two images. FINDINGS: Obliquely oriented fracture noted at the distal fibula is unchanged in alignment. No new fracture. Soft tissue swelling is present but no soft tissue gas. Procedure Note Karely Mckenna MD - 02/15/2025 XR TIBIA FIBULA LEFT AP AND LATERAL, 02/15/2025 2:12 PM CLINICAL HISTORY: -concern for new fracture, fell with re-injury withrecent fracture COMPARISON: None. PROCEDURE COMMENTS: Orthogonal views of the tibia and fibula. Minimum oftwo images. FINDINGS: Obliquely oriented fracture noted at the distal fibula isunchanged in alignment. No new fracture. Soft tissue swelling is present but no softtissue gas. IMPRESSION: Unchanged alignment of distal fibular fracture. No new fracture. This examination does not constitute a diagnostic evaluation of the kneeor ankle. If the patient has symptoms localizing to those areas thensupplemental dedicated imaging recommended. - Note: Radiology results need to be interpreted within a comprehensiveclinical context. If you have questions about the radiology report, please contactthe office of the ordering clinician. Jennifer Naik APRN IMG DIAGNOSTIC IMAGING ORDERA BLES Final Result * XR ANKLE LEFT AP LATERAL AND OBLIQUE (02/15/2025 2:05 PM EST) Anatomical Region Laterality Modality Ankle Radiographic Jahaira ging 02/15/2025 2:05 PM EST Impressions 02/15/2025 2:18 PM EST Unchanged alignment of distal fibular fracture. No new fracture. - Note: Radiology results need to be interpreted within a comprehensive clinical context. If you have questions about the radiology report, please contact the office of the ordering clinician. Narrative 02/15/2025 2:18 PM EST XR ANKLE LEFT AP LATERAL AND OBLIQUE, 02/15/2025 2:05 PM CLINICAL HISTORY: -fell again, recent fracture to same ankle COMPARISON: None. PROCEDURE COMMENTS: XR ANKLE LEFT AP LATERAL AND OBLIQUE FINDINGS: The current fracture of the distal fibula with minimal posterior translation of 2 mm unchanged alignment from the previous study. Ankle mortise remains congruent. No soft tissue gas. No new fracture. Procedure Note Karely Mckenna MD - 02/15/2025 XR ANKLE LEFT AP LATERAL AND OBLIQUE, 02/15/2025 2:05 PM CLINICAL HISTORY: -fell again, recent fracture to same ankle COMPARISON: None. PROCEDURE COMMENTS: XR ANKLE LEFT AP LATERAL AND OBLIQUE FINDINGS: The current fracture of the distal fibula with minimalposterior translation of 2 mm unchanged alignment from the previous study. Anklemortise remains congruent. No soft tissue gas. No new fracture. IMPRESSION: Unchanged alignment of distal fibular fracture. No new fracture. - Note: Radiology results need to be interpreted within a comprehensiveclinical context. If you have questions about the radiology report, please contactthe office of the ordering clinician. Jennifer Naik APRN IMG DIAGNOSTIC IMAGING ORDERA BLES Final Result documented in this encounter Visit Diagnoses Diagnosis Traumatic closed displaced fracture of distal end of left tibia with fibula, sequela- Primary Fall on ice Seasonal allergic rhinitis, unspecified trigger documented in this encounter Orders Nursing Count Last Ordered Date First Orde red Date ED [facility] 1 02/15/2025 NURSING COMMUNICATION 1 02/15/2025 documented in this encounter Care Teams Welder/Fitter Relationship Specialty Start Date End Date No Pcp, Per Patient PCP - General 09/29/24 documented as of this encounter
--- OUTSIDE RECORDS SUMMARY | 2025-02-19 14:45 | XMS_ITS | Encounter Summary ---
Author Organization [facility] Address [address] [place] [address] Care Team Providers Care Sand Conditioner Name Role Phone No Pcp, Per Patient Primary Care Provider Iva franco Reason for Referral * Surgical (Routine) - AFF Authorization Not Needed Specialty Diagnoses / Procedures Referred By Contac t Referred To Contact Diagnoses Closed displaced fracture of lateral malleolus of left fibula, initial encounter Procedures AMB [facility] SURGERY COMMUNICATION ORDER Barron Pickett MD [address] [place] [address] Phone: tel: fax: Referral ID Status Reason Start Date Expiration Date Visits Requested Visits Authorized [id number] AFF Authorization Not Needed 02/19/2025 02/19/2026 1 1 Reason for Visit * Reason Comments Pain Encounter Details Date Type Department Care Team (Late st Contact Info) Description 02/19/2025 2:45 [place] [address] Barron Pickett MD [address] [place] [address] Closed displaced fracture of lateral malleolus of left fibula, initial encounter (Primary Dx) Social History Tobacco Use Types Packs/Day Years [...] on file documented as of this encounter Functional Status * Is the [...] No 10/02/2021 3:09 PM Freida Yañez MA documented as of this encounter Mental Status * Because of a physical, mental or emotional condition, does this person have serious difficulty concentrating, remembering or making decisions? Answer Entry Date Author No 10/02/2021 3:09 PM Freida Yañez MA documented in this encounter Progress Notes * Barron Pickett MD - 02/19/2025 2:45 PM EST Images from the original note were not included. Barron Pickett MD Orthopaedic Trauma [facility] [phone] Lorie Ben CC: Left ankle injury 44 y.o. female Injured Left Ankle ankle 7 days ago. Referred to me by [facility] Mechanism: simple fall. Was seen in ED on 02/12 and injury diagnosed, Was splinted and she reports splint was poor and she had another fall. She presented back and she was changed to a fracture boot Reports pain and swelling Left ankle and she describes it as severe Not able to bear weight PHYSICAL EXAMINATION: General: Well appearing with appropriate affect. No acute distress. Skin: Skin is warm and dry. Color natural. See below for specific extremity. Neuro: Alert and oriented to person, place and time. Normal neurosensory response to touch. Pulmonary: Chest expansion appears symmetric and unlabored. Cardiovascular: No signs of peripheral edema. Lymphatic: No signs of lymphangitis. Musculoskeletal: Left ankle: Positive lateral tenderness. No medial tenderness Moderate swelling and some variable ecchymosis Achilles intact. Calf soft Palpable DP and brisk capillary refill No gross dermatomal deficits Motor strength inhibited by pain. Able to move toes and ankle. Contralateral exam is nontender with palpation. Full motion and strength. No instabilities. XRAYS: Left ankle films from 02/12 and 02/15 from [facility] show a displaced lateral malleolus fracture with medial clear space widened IMPRESSION: Left Ankle ankle lateral malleolus fracture PLAN: Recommend open reduction internal fixation for church of normal anatomy, stability, healing and return of function. Risks, benefits and alternatives of surgery discussed. The patient and/or their family members were given ample opportunity to ask questions and questions answered to their satisfaction. We discussed the goals of surgery, expectations and post-operative course. Well-padded splint applied. We will transition back to fracture boot in post-op period Counseled on strict nonweightbearing and swelling control. Pre-operative paperwork completed today. Work Plan: discussed and note given I offered surgery tomorrow vs Tuesday and she has elected for Tuesday to make arrangements I look forward to seeing Lorie Contreras on the planned date of surgery. I had an extensive conversation with the patient and/or family regarding the risks, benefits, potential complication and reasonable expectations of the planned procedure. Informed verbal consent was given under no distress. We had ample opportunities for questions regarding the usual outcomes. Risks specifically discussed, but not limited to the following, include possible: bleeding, blood clots,anesthesia complications, nerve and blood vessel injury, loss of reduction (if fracture), infection, re-tear or re-injury, hardware breakage or failure (if used), need for additional surgery, and post-operative stiffness. In addition; in rare cases the patient may have loss of a limb (ex;severe uncontrolled infection) or even . No guarantee of any particular results were given. The patient understands that in some cases surgery can make them worse. The patient and family desired that we proceed with the operation and expressed clear understanding. Barron Pickett MD Orthopaedic Trauma [facility] [phone] documented in this encounter Plan of Treatment Upcoming Encounters Date Type Department Care Team (Late st Contact Info) Description 03/05/2025 9:30 [place] [address] Ulises Ayoub PA [address] [place] [address] documented as of this encounter Goals Goal Patient Goal Type Associated Problems Recent Progress Patient-Stated? Author Maintain a healthy diet, exercise regularly and maintain an ideal body weight General No Nel Madden, SYDNEE documented as of this encounter Visit Diagnoses Diagnosis Closed displaced fracture of lateral malleolus of left fibula, initial encounter- Primary documented in this encounter Orders Nursing Count Last Ordered Date First Orde red Date AMB [facility] SURGERY COMMUNICATION ORDER 1 2024 documented in this encounter Care Teams Sand Conditioner Relationship Specialty Start Date End Date No Pcp, Per Patient PCP - General 09/29/24 documented as of this encounter
--- OUTSIDE RECORDS SUMMARY | 2025-02-22 06:29 | XMS_ITS | Encounter Summary ---
Author Organization [place] [address] Care Team Providers Care Shuttler Car Name Role Phone No Pcp, Per Patient Primary Care Provider Iva franco Reason for Visit * Auth/Cert/Inpt Specialty Diagnoses / Procedures Referred By Contac t Referred To Contact Diagnoses Closed displaced fracture of lateral malleolus of left fibula, initial encounter Closed displaced fracture of lateral malleolus of left fibula, initial encounter [S82.62XA] Procedures NV OPEN TX DISTAL FIBULAR FRACTURE LAT MALLEOLUS OPEN REDUCTION INTERNAL FIXATION LEFT LATERAL MALLEOLUS Referral ID Status Reason Start Date Expiration Date Visits Re quested Visits Authorized [id number] 1 1 Encounter Details Date Type Department Care Team (Latest Contact Info) Description 02/22/2025 6:29 AM EST - 02/22/2025 9:49 AM EST Hospital Encounter [facility] [address] [place] [address] Barron Pickett MD [address] [place] [address] Closed displaced fracture of lateral malleolus of left fibula, initial encounter Discharge Disposition: Home or Self Care Social History Tobacco Use Types Packs/Day Years Used Date Smoking Tobacco: Never Passive Smoke Exposure: Past Smokeless Tobacco: Never Tobacco Cessation:Counseling Given: Not Answered Comments:passive: mother in household Alcohol Use Standard Drinks/Week Comments No 0 [...] Sign Reading Time Taken Comments Blood Pressure 133/79 02/22/2025 9:37 AM EST Pulse 70 02/22/2025 9:37 AM EST Temperature 36.1 C (97 F) 02/22/2025 9:37 AM EST Respiratory Rate 16 02/22/2025 9:37 AM EST Oxygen Saturation 100% 02/22/2025 9:37 AM EST Inhaled Oxygen Concentration - - Weight 77.7 kg (171 lb 3.2 oz) 02/22/2025 6:53 A M EST Height 157.5 cm (5' 2 ) 02/22/2025 6:53 AM EST Body Mass Index 31.31 02/22/2025 6:53 AM EST documented in this encounter Functional Status * Is the person deaf or does he/she have serious difficulty hearing? Answer Date of Assessment Author No 10/02/2021 3:09 PM EDT Freida Wyatt MA * Is the person blind or does he/she have serious difficulty seeing even when wearing glasses? Answer Date of Assessment Author No 10/02/2021 3:09 PM EDFreida Valenzuela MA * Does this person have serious [...] Freida Yañez MA documented in this encounter Discharge Instructions * Discharge Instructions* Barron Pickett MD - 02/22/2025 6:52 AM EST Images from the original note were not included. Nonweightbearing on your left foot and ankle Elevate left foot and ankle for swelling control Maintain splint and dressing clean and dry Use pain medication as directed Follow up as scheduled for post-op care +++++++++++++++++++++++++++++++++++++++++++++++++++++++++++++++++++ [facility] Discharge Instructions - Following Anesthesia We appreciate the opportunity to care for you today! Here are a few reminders as you head home: A responsible adult, 18 years or older must be in attendance until tomorrow morning. Rest quietly today. May resume usual diet as tolerated or as directed by your surgeon. Do not drive or operate any machinery until tomorrow morning or as instructed. Do not make any legal or important decisions for the next 24 hours. Do not drink alcoholic beverages or take sleeping pills for 24 hours unless otherwise directed. If you received a nerve block for post-operative pain control, protect your blocked arm/leg. It maybe numb. Carefully pad your limb to prevent pressure sores and other injuries. Be careful with applying cold/warm to the blocked limb. Numbness will alter the sensation of the limb and could damage your skin if you cannot correctly feel the temperature. If you have questions or concerns regarding your anesthesia experience, please call our office at . Get Well Soon! [facility] +++++++++++++++++++++++++++++++++++++++++++++++++++++++++++++++++++ * Attachments The following attachments cannot be sent through Care Everywhere. * How to use an incentive spirometer (Ghanaian) documented in this encounter Medications at Time of Discharge albuterol (PROVENTIL HFA;VENTOLIN HFA) 90 mcg/actuation Inhl HFA Aerosol InhalerIndicatio ns:Nasal sinus congestion Inhale 2 Puffs into the lungs every 4 hours as needed for Wheezing. 1 Each 2 07/27/2023 atorvastatin (LIPITOR) 20 mg Oral Tablet Take 20 mg by mouth daily. 02/04/2025 cholecalciferol, vitamin D3, 25 mcg (1,000 unit) Oral Tablet Take 1,000 Units by mouth daily. 01/24/2025 EPINEPHrine (EPIPEN) 0.3 mg/0.3 mL Inj Auto-Injector Inject 0.3 mg into the muscle as needed. 01/30/2025 famotidine (PEPCID) 20 mg Oral Tablet Take 20 mg by mouth daily. 12/03/2024 fexofenadine (DEVAN) 180 mg Oral Tablet Take 180 mg by mouth every 24 hours. 01/24/2025 fluticasone propionate (FLONASE) 50 mcg/actuation Nasl [place], Suspension 2 Sprays by Nasal route daily for 14 days. 15.8 mL 02/15/2025 12/19/202 5 ibuprofen (ADVIL;MOTRIN) 600 mg Oral Tablet Take 1 Tablet by mouth every 8 hours as needed for Pain for up to 30 days. 30 Tablet 02/12/2025 LEVOthyroxine (SYNTHROID) 25 mcg Oral TabletIndication s:Hypothyroidism (acquired) Take 1 Tablet by mouth daily. 90 Tablet 07/28/2023 loratadine (CLARITIN REDITABS) 10 mg Oral Tablet, Rapid Dissolve Dissolve 10 mg by mouth daily. 01/29/2025 nalOXone (NARCAN) 4 mg/actuation Nasl [place], Non-Aerosol [place] the contents of one device (0.1mL) into one nostril upon signs of opioid overdose. Call 911. May repeat dose in other nostril if no response within 2-3 minutes. 2 Each 02/22/2025 oxyCODONE-acetam inophen (PERCOCET) 5-325 mg Oral TabletIndication s:Closed displaced fracture of lateral malleolus of left fibula, initial encounter Take 1 Tablet by mouth every 6 hours as needed for Acute Pain > 3 Days Medically Necessary (R52) or Major Surgery/Trauma (G89.18) for up to 5 days. Post-op medication. Can be filled 02/25/25 20 Tablet 02/25/2025 5 sertraline (ZOLOFT) 100 mg Oral Tablet Take 75 mg by mouth nightly. 01/24/2025 triamcinolone (KENALOG) 0.1 % Top CreamIndications :Rash Apply topically 2 times daily. 80 g 2 02/25/2023 oxyCODONE-acetam inophen (PERCOCET) 5-325 mg Oral Tablet Take 1 Tablet by mouth every 6 hours as needed for Acute Pain > 3 Days Medically Necessary (R52) for up to 5 days. Post-op medication 20 Tablet 02/22/2025 5 documented as of this encounter Ordered Prescriptions Prescription Sig Dispense Quantity Refills Last Filled Start Date End Date oxyCODONE-acetamin ophen (PERCOCET) 5-325 mg Oral TabletIndications: Closed displaced fracture of lateral malleolus of left fibula, initial encounter Take 1 Tablet by mouth every 6 hours as needed for Acute Pain > 3 Days Medically Necessary (R52) or Major Surgery/Trauma (G89.18) for up to 5 days. Post-op medication. Can be filled 02/25/25 20 Tablet 02/25/2025 nalOXone (NARCAN) 4 mg/actuation Nasl [place], Non-Aerosol [place] the contents of one device (0.1mL) into one nostril upon signs of opioid overdose. Call 911. May repeat dose in other nostril if no response within 2-3 minutes. 2 Each 02/22/2025 oxyCODONE-acetamin ophen (PERCOCET) 5-325 mg Oral Tablet Take 1 Tablet by mouth every 6 hours as needed for Acute Pain > 3 Days Medically Necessary (R52) for up to 5 days. Post-op medication 20 Tablet 02/22/2025 5 documented in this encounter Discharge Disposition Disposition Code Departure Means Destination Comment s Home or Self Care Car Home documented in this encounter Progress Notes * Barron Pickett MD - 02/22/2025 7:15 AM EST Patient seen and examined in preop holding Plans again discussed and questions answered Risks, benefits and alternatives of treatment (again) discussed as well as goals, expectations and post-operative course. Patient given ample opportunity to ask questions and questions answered Site marked Antibiotics ordered (if indicated) To OR when ready for ORIF Left lateral malleolus Post-op: PACU and dc home documented in this encounter H&P Notes * Ignacia Gomez NP - 02/22/2025 7:02 AM EST Images from the original note were not included. History and Physical Name: Lorie Contreras : 1980 AGE: 44 y.o. PCP: No Pcp, Per Patient Admitting Physician: Barron Pickett MD Date of Admit: 02/22/2025 Chief complaint: Closed displaced fracture of lateral malleolus of left fibula, initial encounter [S82.62XA] HPI: This is a 44 y.o. year old female patient who presents today for surgical treatment of the above problem. Reports fell in snow on 02/12/25 resulting in left lateral malleolus fibula fracture. Reports has fall 2 other times since initial fall but denies injury. Denies syncope. Reports left ankle variable pain and burning. Reports swelling and bruising of left ankle/foot. Past Medical History[1] Surgical History[2] Medications ordered prior to the current encounter[3] Allergies[4] Social History Socioeconomic History Marital status: Single Spouse name: Not on file Number of children: Not on file Years of education: Not on file Highest education level: Not on file Occupational History Not on file Tobacco Use Smoking status: Never Passive exposure: Past Smokeless tobacco: Never Tobacco comments: passive: mother in household Vaping Use Vaping status: Never Used Substance and Sexual Activity Alcohol use: No Drug use: No Sexual activity: Yes Partners: Male Other Topics Concern Not on file Social History Narrative Not on file Social Drivers of Health Financial Resource Strain: Low Risk (12/03/2019) Overall Financial Resource Strain (CARDIA) Difficulty of Paying Living Expenses: Not very hard Food Insecurity: No Food Insecurity (12/03/2019) Hunger Vital Sign Worried About Running Out of Food in the Last Year: Never true Ran Out of Food in the Last Year: Never true Transportation Needs: No Transportation Needs (12/03/2019) PRAPARE - Transportation Lack of Transportation (Medical): No Lack of Transportation (Non-Medical): No Physical Activity: Not on file Stress: Not on file Social Connections: Not on file Intimate Partner Violence: Not on file Housing Stability: Not on file Family History[5] Review of Systems As above and all other relevant systems are negative. Vitals: 02/22/25 0653 BP: 123/76 Pulse: 69 Resp: 16 Temp: 97.1 ??F (36.2 ??C) SpO2: 100% Physical Exam General: No acute distress. Neuro: alert. oriented Eyes: pupils equal. Extra-ocular muscles intact Mouth: Oral mucosa moist. Nose: midline. Good air movement Neck: supple. Chest: symmetric excursion with respiration. Respirations unlabored and regular. CTA B Heart: Regular rate and rhythm w/o R/G/M Abdomen: soft, non-tender, non-distended, +bowel sounds Extremities: LLE with jesu wrap, left toes with bruising and swelling, slight decreased ROM left toes, left toes warm to touch with brisk cap refill, 2+ bilateral radial and right DP. Pre op labs, tests and EKG (if completed and available) were reviewed. Labs: Lab Results Component Value Date WBC 10.0 09/29/2024 HGB 12.4 09/29/2024 HCT 39.2 09/29/2024 PLT 353 09/29/2024 CHOLESTEROL 211 (H) 07/27/2023 TRIG 140 07/27/2023 HDL 44 07/27/2023 LDLCALC 142 (H) 07/27/2023 ALT 21 09/29/2024 AST 16 09/29/2024 NA 138 09/29/2024 K 3.9 09/29/2024 CL 102 09/29/2024 CREATININE 0.87 09/29/2024 BUN 15 09/29/2024 CO2 24 09/29/2024 TSH 2.800 05/25/2019 GLU 92 09/29/2024 HGBA1C 5.5 10/28/2021 No results found for this or any previous visit (from the past 96 hours). Assessment: Closed displaced fracture of lateral malleolus of left fibula, initial encounter [S82.62XA] Plan: Procedure(s): OPEN REDUCTION INTERNAL FIXATION LEFT LATERAL MALLEOLUS per Barron Pickett MD Last ibuprofen 02/19/25 [1] Past Medical History: Diagnosis Date Closed displaced fracture of lateral malleolus of left fibula Endometriosis Hyperlipidemia Hypothyroidism (acquired) Mild intermittent asthma without complication [2] Past Surgical History: Procedure Laterality Date APPENDECTOMY CYST REMOVAL 2014 from [facility] area OVARY SURGERY 1998 right TUBAL LIGATION 03/14/2010 pt states only burnt, not tied or cut [3] No current facility-administered medications on file prior to encounter. Current Outpatient Medications on File Prior to Encounter Medication Sig Dispense Refill albuterol (PROVENTIL HFA;VENTOLIN HFA) 90 mcg/actuation Inhl HFA Aerosol Inhaler Inhale 2 Puffs into the lungs every 4 hours as needed for Wheezing. 1 Each 2 atorvastatin (LIPITOR) 20 mg Oral Tablet Take 20 mg by mouth daily. cholecalciferol, vitamin D3, 25 mcg (1,000 unit) Oral Tablet Take 1,000 Units by mouth daily. fexofenadine (DEVAN) 180 mg Oral Tablet Take 180 mg by mouth every 24 hours. ibuprofen (ADVIL;MOTRIN) 600 mg Oral Tablet Take 1 Tablet by mouth every 8 hours as needed for Painfor up to 30 days. 30 Tablet 0 LEVOthyroxine (SYNTHROID) 25 mcg Oral Tablet Take 1 Tablet by mouth daily. 90 Tablet 0 loratadine (CLARITIN REDITABS) 10 mg Oral Tablet, Rapid Dissolve Dissolve 10 mg by mouth daily. (Patient taking differently: Dissolve 10 mg by mouth as needed.) oxyCODONE-acetaminophen (PERCOCET) 5-325 mg Oral Tablet Take 1 Tablet by mouth every 8 hours as needed for Acute Pain (R52). 21 Tablet 0 sertraline (ZOLOFT) 100 mg Oral Tablet Take 75 mg by mouth nightly. EPINEPHrine (EPIPEN) 0.3 mg/0.3 mL Inj Auto-Injector Inject 0.3 mg into the muscle as needed. famotidine (PEPCID) 20 mg Oral Tablet Take 20 mg by mouth daily. (Patient not taking: Reported on 02/21/2025) fluticasone propionate (FLONASE) 50 mcg/actuation Nasl [place], Suspension 2 Sprays by Nasal route daily for 14 days. 15.8 mL 0 triamcinolone (KENALOG) 0.1 % Top Cream Apply topically 2 times daily. 80 g 2 [4] Allergies Allergen Reactions Mucinex [Guaifenesin] Anaphylaxis Droperidol Other (See Comments) Made her very loopy, anxious, fatigue Vicodin [Hydrocodone-Acetaminophen] Rash [5] Family History Problem Relation Age of Onset Hypertension Mother Cancer Paternal Aunt Heart Disease Maternal Grandmother Thyroid Disease Maternal Grandmother Diabetes Paternal Grandmother Anesth Problems Neg Hx documented in this encounter Procedure Notes * Barron Pickett MD - 02/22/2025 8:25 AM EST Images from the original note were not included. Operative Report DATE OF OPERATION: 02/22/25 PREOPERATIVE DIAGNOSIS: left lateral malleolus fracture. POSTOPERATIVE DIAGNOSIS: left lateral malleolus fracture. PROCEDURE: Open reduction internal fixation left lateral malleolus. SURGEON: Barron Pickett MD. RADIO ENGINEERING TEACHER: Ulises Ayoub PA-C. An medical assistant internal medicine was necessary for the procedure, as he actively assisted with retraction, exposure, limb positioning, reduction, implant placement and suture management. ANESTHESIA: General with regional. COMPLICATIONS: No apparent intraoperative complications. SPECIMENS: None. ESTIMATED BLOOD LOSS: Please see anesthesia record. PREOPERATIVE ANTIBIOTICS: Ancef IMPLANT COMPONENTS: Miryam small fragment instrumentation. BRIEF PATIENT HISTORY AND INDICATIONS: Lorie is a 44-year-old female who sustained a left lateral malleolar fracture in a mechanical fall. I was asked to assume the patient's definitive orthopedic care. I had the opportunity to evaluate the patient and discuss with them the injury, the planned surgical procedure, and the rationale behind it. We also discussed treatment options, including risks, benefits, and alternatives. I recommended open reduction internal fixation of this unstable ankle injury with a goal of holiness of normal anatomy, healing, and return of function. They were given ample opportunity to ask questions. Questions were answered. Informed consent was obtained. No guarantees were implied nor given. I had an extensive conversation with the [...] and blood vessel injury, loss of reduction or nonunion (if fracture), infection, re-tear or re-injury, hardware breakage or failure (if used), need for additional surgery, and post- operative stiffness. In addition; in rare cases the patient may have loss of a limb (ex;severe uncontrolled infection) or even . No guarantee of any particular results were given. The patient understands that in some cases surgery can make them worse. The patient and/or family desired that we proceed at the soonest possible time with the operation and expressed clear understandin g. She is PROCEDURE DETAILS: The patient's operative site was marked and verified in the preoperative holdingarea. They were then brought back to the Operating Room Suite and transitioned to the supine position on a well-padded operating room table. After the induction of adequate general anesthesia by the anesthesia team, a left thigh tourniquet was applied, and the operative lower extremity was prepped and draped in a standard sterile fashion. A timeout was performed and all surgical team members agreed upon the correct patient, planned surgical procedure, and surgical site. The patient did receive standard preoperative prophylactic antibiotics. The patient's operative limb was elevated for gravity exsanguination. The tourniquet was inflated. I made a direct lateral approach to the lateral malleolar fracture. The fracture site was identified, debrided of hematoma, reduced anatomically under direct visualization, fixed using a lag screw and neutralized using a distal fibular plate. At this point, 3 views of the left ankle were obtained and interpreted by me, which showed anatomic reduction of the fracture, an intact ankle mortise, a stable syndesmosis, and safe position of all hardware. The wound was then copiously irrigated and carefully closed in a layered fashion. With the skin then closed, sterile dressings were applied. Drapes were taken down. The patient was transitioned back to their hospital bed and awoken from general anesthetic, extubated, and returned to the Postanesthesia Recovery Unit in stable condition. The patient tolerated the procedure well without apparent intraoperative complication. * Barron Pickett MD - 02/22/2025 8:21 AM EST [facility] OPERATIVE/PROCEDURE NOTE Lorie Contreras February [birth year]25 Body mass index is 31.31 kg/m??. PRE-OP DIAGNOSIS: Closed displaced fracture of lateral malleolus of left fibula, initial encounter [S82.62XA] POST-OP DIAGNOSIS: Closed displaced fracture of lateral malleolus of left fibula, initial encounter[S82.62XA] PROCEDURE(S): Procedure(s): OPEN REDUCTION INTERNAL FIXATION LEFT LATERAL MALLEOLUS SURGEON(S): Surgeons and Role: * Barron Pickett MD - Primary RADIO ENGINEERING TEACHER(S): Ulises Ayoub PAC ANESTHESIA: General w/Block SPECIMENS: * No specimens in log * ESTIMATED BLOOD LOSS (mls): 5 *EBL MUST be documented as a numeric value FINDINGS: as expected OTHER INFO: none DISPOSITION/POST PROC COURSE: PACU and dc home Barron Pickett MD Date: 02/22/2025 documented in this encounter Nursing Notes * Belén Maher, RN - 02/21/2025 8:41 AM EST Images from the original note were not included. PREPARING FOR YOUR SURGERY Date of Surgery: 02/22 Arrival time: Your surgeon may have already provided this, check your paperwork from the office. Ifnot received, call your surgeon's office. Location: [facility] Medications on the Day of Surgery Take the following medications on the morning of surgery: levothyroxine, percocet Medications to hold prior to surgery; Verify with your doctor for possibly discontinuing the following medications: blood thinners, aspirin, or anti-inflammatories. Stop taking all supplements 7 days prior to your surgery. Food, Drinks, Tobacco Do not eat food after midnight. This includes gum, mints, candy, chewing tobacco, and dip. Unless otherwise instructed by your surgeon, you may consume water, Gatorade, Powerade, black coffee/tea (nomilk, no cream/creamers, no sugar). Finish these liquids 2 hours prior to your scheduled arrival time. No exceptions or substitutions to these restrictions. Do not smoke, vape, or use any type of tobacco or marijuana products within 24 hours prior to surgery. Smoking will also slow your rate of healing. It is advised that you do not smoke during the healing process. No alcohol 24 hours prior to surgery. Camp Head Counselor It is important to have a Camp Head Counselor, someone who is 18 years or older, to accompany you and remain in the facility for the duration of your surgery. This person should be available for the Perioperative Team, which includes your surgeon, to communicate with before, during and after your surgery. Because you are receiving anesthesia, someone is needed to drive you home and remain with you for at least 24 hours after surgery to make sure you are safe during that time We also recommend that no children be present on the day of surgery. If you have a concern, please reach out to our department [phone]. Hygiene [place] your teeth and gargle the morning of surgery. Shower the morning of surgery or the night before. Do not wear makeup (including eye makeup) lotion, powder, deodorant, perfume, or cologne. Do not shave the operative extremity or near the operative area. Remove nail russian prior to surgery. This includes artificial nails and gel nail russian. Shower or bathe with chlorhexidine (CHG) the night before your surgery or the morning of your surgery. Do not shave the area of your body where your surgery will be performed. With each shower or bath, wash your hair as usual first with your regular shampoo. Rinse your hair and body thoroughly after you shampoo your hair to remove the shampoo residue. Apply the chlorhexidine (CHG) soap to your entire body ONLY FROM THE NECK DOWN. Wash thoroughly, paying special attention to the area where your surgery will be performed. Do not use chlorhexidine (CHG) on your head, face or near your mouth. Do not use near eyes or ears to avoid permanent injury tothose areas. Do not use chlorhexidine in the genital area. Turn water off to prevent rinsing the soap off too soon. Wash your body gently for five (5) minutes. Do not scrub your skin too hard. Do not wash with your regular soap after chlorhexidine (CHG) is used. Turn the water back on and rinse your body thoroughly. Pat yourself dry with a clean, soft towel. Do not apply any lotions, perfumes or powders after use. See additional information located under label on product. Personal Items Wear clean, simple, loose-fitting clothing (no jeans) and sturdy shoes (no flip flops, slides or crocs) to the hospital. Do not bring unnecessary valuables with you. It is policy that [facility] does not assume responsibility for lost, stolen or broken personal items that are brought in. Exceptions may be consideredfor items which are considered necessary for your healthcare. These items will be formally documented. Remove all jewelry prior to surgery to prevent injury. We will not tape wedding rings/bands Remove all body piercings prior to arrival. Plastic inserts are acceptable. Glasses and contacts will need to be removed prior to surgery. Please bring a case for them. Bring with You Bring a copy of your Living Will and/or Durable Power of Tying Machine Operator Lumber for Healthcare. Vaccines It is recommended that you do not receive vaccines 7 days before or after surgery. Notify the Surgeon Notify your surgeon if you develop any illness (fever, cold, cough, sore throat, nausea, vomiting, skin rashes etc.) between now and surgery time Notify your surgeon and Pre-admission testing ([phone]) if you have any changes in your healthconditions or if any new medications are ordered between now and surgery.. Questions or Concerns? If you have any questions or concerns, feel free to call the Pre-Admission testing department at [phone]. We want to make sure you feel safe and have an excellent experience while you are here. Do not reply to this message through EGT as it may not be answered promptly. Same Day Surgery Unit - [facility] at [phone]; [facility]: Park at Entrance 1A Main Entrance, NOT Outpatient Parking. Walk in atrium and go to front office developer. Look for sign at information desk that states Surgery Check In . [facility] [place] [address]. DOORS OPEN AT 5: 30 AM TUE-TUE AND 6:00 AM ON TUESDAY AND 8:00 AM ON TUESDAY Surgical Site Infections FAQs What is a Surgical Site Infection (SSI)? A surgical site infection is an infection that occurs after surgery in the part of the body where the surgery took place. Most patients who have surgery do not develop an infection. However, infections develop in about 1 to 3 out of every 100 patients who have surgery. Some of the common symptoms of a surgical site infection are: Redness and pain around the area where you had surgery Drainage of cloudy fluid from your surgical wound. Fever Can SSIs be treated? Yes. Most surgical site infections can be treated with antibiotics. The antibiotic given to you depends on the bacteria (germs) causing the infection. Sometimes patients with SSIs also need another surgery to treat the infection. What are some of the things that hospitals are doing to prevent SSIs? To prevent SSIs, doctors, nurses, and other healthcare providers: Clean their hands and arms up to their elbows with an antiseptic agent just before the surgery. Clean their hands with soap and water or an alcohol-based hand rub before and after caring for eachpatient. May remove some of your hair immediately before your surgery using electric clippers if the hair isin the same area where the procedure will occur. They should not shave you with a razor. Wear special hair covers, masks, gowns, and gloves during surgery to keep the surgery area clean. Give you antibiotics before your surgery starts. In most cases, you should get antibiotics within 60 minutes before the surgery starts and the antibiotics should be stopped within 24 hours after surgery. Clean the skin at the site of your surgery with a special soap that kills germs. What can I do to help prevent SSIs? Before your surgery: Tell your doctor about other medical problems you may have. Health problems such as allergies, diabetes, and obesity could affect your surgery and your treatment. Quit smoking. Patients who smoke get more infections. Talk to your doctor about how you can quit before your surgery. Do not shave near where you will have surgery. Shaving with a razor can irritate your skin and makeit easier to develop an infection. At the time of your surgery: Speak up if someone tries to shave you with a razor before surgery. Ask why you need to be shaved and talk with your surgeon if you have any concerns. Ask if you will get antibiotics before surgery. After your surgery: Make sure that your healthcare providers clean their hands before examining you, either with soap and water or an alcohol-based hand rub. If you do not see your providers clean their hands, please ask them to do so. Family and friends who visit you should not touch the surgical wound or dressings. Family and friends should clean their hands with soap and water or an alcohol- based hand rub beforeand after visiting you. If you do not see them clean their hands, ask them to clean their hands. What do I need to do when I go home from the hospital? Before you go home, your doctor or nurse should explain everything you need to know about taking care of your wound. Make sure you understand how to care for your wound before you leave the hospital. Always clean your hands before and after caring for your wound. Before you go home, make sure you know who to contact if you have questions or problems after you get home. If you have any symptoms of an infection, such as redness and pain at the surgery site, drainage, or fever, call your doctor immediately. If you have additional questions, please ask your doctor or nurse. Developed and co-sponsored by The Society for Healthcare Epidemiology of [place] (STA[place]); InfectiousDiseases Society of [place] (IDSA); [facility] [employer]; Association for Professionals inInfection Control and Epidemiology (APIC); Centers for Disease Control and Prevention (CDC); and The Joint Commission. This information is not intended to replace advice given to you by your health care provider. Make sure you discuss any questions you have with your health care provider. , ANESTHESIA - COMMON SIDE EFFECTS (if present, these should resolve within 24 hours) TIREDNESS SHIVERING DIZZINESS DRY MOUTH MILD NAUSEA/VOMITING SORE THROAT OR HOARSENESS MILD PAIN OR DISCOMFORT IS NORMAL CALL THE SURGEON DAY OR NIGHT You have nausea or vomiting that doesn???t go away by the next morning. You experience severe pain not relieved by suggested medications. Thank you for letting us care for you. documented in this encounter Miscellaneous Notes * Plan of Care - Alecia Montiel RN - 02/22/2025 8:27 AM EST Problem: Potential for Infection Description: Related to: -Invasive lines (IV, CVD, Indwelling Urinary Catheter) -Alteration in skin integrity related to positioning during procedure -Surgical Site Goal: Patient will be free from infection 02/22/2025826 by Nurse Alecia RN Outcome: Progressing 02/22/2025826 by Nurse Alecia RN Outcome: Progressing Problem: Potential for injury Description: Related to: Procedure Goal: Patient is free from signs or symptoms of physical injury unrelated to the intended therapeutic effects of the procedure. 02/22/2025826 by Nurse Alecia RN Outcome: Progressing 02/22/2025826 by Nurse Alecia RN Outcome: Progressing Problem: Pain Management Description: Related to: Procedure Goal: The patient's stated pain goal will be reached and maintained. Outcome: Progressing Problem: Potential for altered respiratory status. Description: Related to: Sedation/Anesthesia Goal: Patient will remain free of respiratory complications. Outcome: Progressing Problem: Bleeding Description: Related to: Procedure Goal: Post-op dressing will remain clean and dry. Outcome: Progressing Goal: Patient will have no signs/symptoms of post-procedure bleeding. Outcome: Progressing Goal: Access site will be free of hematoma/bleeding. Outcome: Progressing Problem: Potential for post-op nausea/vomiting Description: Related to procedure Goal: Patient will be free of post-op nausea/vomiting or nausea/vomiting will be controlled. Outcome: Progressing Problem: Potential for altered tissue perfusion-contrast reaction/renal impairment Description: Related to: Contrast administration Goal: Patient will be free of contrast reaction and GFR will remain baseline. Outcome: Progressing Problem: Potential for alteration in skin integrity Goal: Skin integrity is maintained or improved Outcome: Progressing Problem: Alteration in circulation/neurovascular status Goal: Circulation/neurovascular status will be maintained. Outcome: Progressing Problem: Safety: Fall Risk Goal: Patient will be free from falls. Outcome: Progressing Problem: Thermoregulation Goal: Patient's temperature will be greater than 96.8F at discharge. Outcome: Progressing documented in this encounter Plan of Treatment Upcoming Encounters Date Type Department Care Team (Late st Contact Info) Description 03/05/2025 9:30 AM EST Office Visit [address] [address] Ulises Ayoub PA [address] [place] [address] Pending Results Name Type Priority Associated Diagnoses Date /Time ECG AND WAVEFORMS - TELEMETRY Point of Care Testing Routine 02/22/2025 8:47 AM EST documented as of this encounter Goals Goal Patient Goal Type Associated Problems Recent Progress Patient-Stated? Author Maintain a healthy diet, exercise regularly and maintain an ideal body weight General No Nel Madden RMA documented as of this encounter Procedures Procedure Name Priority Date/Time Associated Diagnosis Comments ECG AND WAVEFORMS - TELEMETRY Routine 02/22/2025 8:47 AM EST FL < 1 HOUR LOVE 02/22/2025 8:08 AM EST XR ANKLE LEFT AP LATERAL AND OBLIQUE LOVE 02/22/2025 8:08 AM EST NV OPEN TX DISTAL FIBULAR FRACTURE LAT MALLEOLUS 02/22/2025 7:32 AM EST Closed displaced fracture of lateral malleolus of left fibula, initial encounter Special Needs MIRYAM MCBRIDE SMALL FRAG, PRE-OP POPLITEAL BLOCKSTRYKER NOTIFIED 02/21 [facility] ANES GUIDANCE FOR NERVE BLOCK STAT 02/22/2025 6:52 AM EST documented in this encounter Results * FL < 1 HOUR (02/22/2025 8:08 AM EST) Narrative PACS - 02/22/2025 8:09 AM EST Fluoroscopy was performed. The radiologist was not in attendance. Images might be present or might not for this order. This dictation is being made for record keeping purposes. Barron Pickett MD IMG FLUOROSCOPY ORDERABLE S Final Result PACS * XR ANKLE LEFT AP LATERAL AND OBLIQUE (02/22/2025 8:08 AM EST) Anatomical Region Laterality Modality Ankle Radio Fluoroscop y 02/22/2025 8:08 AM EST Impressions 02/22/2025 8:34 AM EST Intraoperative imaging - Note: Radiology results need to be interpreted within a comprehensive clinical context. If you have questions about the radiology report, please contact the office of the ordering clinician. Narrative 02/22/2025 8:34 AM EST XR ANKLE LEFT AP LATERAL AND OBLIQUE, 02/22/2025 8:08 AM CLINICAL HISTORY: -sx COMPARISON: Injury films 02/15/2025 PROCEDURE COMMENTS: 3 intraoperative images FINDINGS: Open reduction internal fixation of the spiral oblique distal fibular fracture with sideplate and multiple screw placement Procedure Note Dave Triana MD - 02/22/2025 XR ANKLE LEFT AP LATERAL AND OBLIQUE, 02/22/2025 8:08 AM CLINICAL HISTORY: -sx COMPARISON: Injury films 02/15/2025 PROCEDURE COMMENTS: 3 intraoperative images FINDINGS: Open reduction internal fixation of the spiral oblique distalfibular fracture with sideplate and multiple screw placement IMPRESSION: Intraoperative imaging - Note: Radiology results need to be interpreted within a comprehensiveclinical context. If you have questions about the radiology report, please contactthe office of the ordering clinician. us Barron [facility] OR DERABLES Final Result * US ANES GUIDANCE FOR NERVE BLOCK (02/22/2025 6:52 AM EST) Narrative Genericuser, Audit - 02/22/2025 6:52 AM EST Ultrasound guided nerve block performed by Anesthesiologist. The study image(s) are for reference only and will not be interpreted by a Radiologist. Refer to the Anesthesia procedure note for image description and procedure details. us Obey Narciso Amarjit DO IMG US ORDERABLES Final Resul t documented in this encounter Visit Diagnoses Diagnosis Closed displaced fracture of lateral malleolus of left fibula- Primary Closed fracture of lateral malleolus Closed displaced fracture of lateral malleolus of left fibula, initial encounter documented in this encounter Admitting Diagnoses Diagnosis Closed displaced fracture of lateral malleolus of left fibula Closed fracture of lateral malleolus documented in this encounter Administered Medications Inactive Administered Medications - up to 1 most recent administrations Medication Order MAR Action Action Date Dose Rate Site acetaminophen (TYLENOL) tablet 1,000 mg 1,000 mg, Oral, PREPROCEDURE, 1 dose, Starting on Tue02/22/25 at 0645, Until Tue02/22/25 at 0709, Coanalgesic, Do not give if patient received acetaminophen within the last 6 hours Maximum adult dose of acetaminophen is 4000 mg from all sources in 24 hours., Pre-op (Holding/SDS Meds) Given 02/22/2025 7:09 AM EST 1,000 mg bupivacaine (MARCAINE/SENSORCAINE) 0.5 % (5 mg/mL) injection 40 mL 40 mL, Perineural, PRN, 2 doses, Starting on Tue02/22/25 at 0652, Until Tue02/22/25 at 1354, For perineural block, For administration during pre-op peripheral block, Pre-op (Holding/SDS Meds) Given 02/22/2025 7:19 AM EST 40 mL dexAMETHasone (DECADRON) injection 4 mg 4 mg, Perineural, ONCE PREPROCEDURE, 1 dose, On Tue02/22/25 at 0700, Pre-op (Holding/SDS Meds) Given 02/22/2025 7:19 AM EST 4 mg lactated ringers infusion Intravenous, at 50 mL/hr, PREPROCEDURE CONTINUOUS, Starting on Tue02/22/25 at 0645, Until Tue02/22/25 at 1354, To be given in SDS/Pre-op Holding Area, Pre-op (Holding/SDS Meds) IV Restarted 02/22/2025 7:34 AM EST midazolam (VERSED) injection 2 mg 2 mg, Intravenous, ONCE, 1 dose, On Tue02/22/25 at 0700, VESICANT , Pre-op (Holding/SDS Meds) Given 02/22/2025 7:19 AM EST 2 mg ondansetron (ZOFRAN) injection 4 mg 4 mg, Intravenous, ONCE PRN, 1 dose, Starting on Tue02/22/25 at 0815, Until Tue02/22/25 at 1354, Nausea, First Line Antiemetic, Do not give if patient received granisetron (Kytril) or ondansetron (Zofran) within 4 hours., PACU ondansetron (ZOFRAN-ODT) disintegrating tablet 8 mg 8 mg, Oral, ONCE PRN, 1 dose, Starting on Tue02/22/25 at 0815, Until Tue02/22/25 at 1354, Nausea, First Line Antiemetic, Do not give if patient received granisetron (Kytril) or ondansetron (Zofran) within 4 hours., PACU oxyCODONE (ROXICODONE) immediate release tablet 5 mg 5 mg, Oral, EVERY 1 HOUR PRN, Starting on Tue02/22/25 at 0815, Until Tue02/22/25 at 1354, Pain, When tolerating oral intake. Maximum dose not to exceed 10 mg unless otherwise directed by the Anesthesia Coordinator., PACU Given 02/22/2025 8:47 AM EST 5 mg promethazine (PHENERGAN) 12.5 mg in sodium chloride 0.9% 10 mL injection 12.5 mg, Intravenous, PRN, Starting on Tue02/22/25 at 0815, Until Tue02/22/25 at 1354, Nausea, Second Line Antiemetic, For nausea unrelieved by droperidol or pre-op antiemetic. Begin with lowest dose unless otherwise directed. Give remainder of dose if nausea unrelieved in 20 minutes. Not to exceed 25 mg in one hour unless otherwise ordered by Anesthesia Coordinator. VESICANT , PACU promethazine (PHENERGAN) 6.25 mg in sodium chloride 0.9% 10 mL injection 6.25 mg, Intravenous, PRN, Starting on Tue02/22/25 at 0815, Until Tue02/22/25 at 1354, Nausea, Second Line Antiemetic, For nausea unrelieved by droperidol or pre-op antiemetic. Begin with lowest dose unless otherwise directed. Give remainder of dose if nausea unrelieved in 20 minutes. Not to exceed 25 mg in one hour unless otherwise ordered by Anesthesia Coordinator. VESICANT , PACU scopolamine (TRANSDERM-SCOP) 1 mg over 3 days 1 Patch 1 Patch, Transdermal, ONCE PREPROCEDURE, 1 dose, On Tue02/22/25 at 0645, Place patch behind ear. Remove in 24 hours. To be given in SDS/Pre-op Holding Area. Transderm-Scop patch delivers scopolamine 1 mg per 72 hours, Administer over 24 Hours, Pre-op (Holding/SDS Meds) Patch Applied 02/22/2025 7:09 AM EST 1 Patch Right Ear documented in this encounter Discontinued Medications Medication Sig Discontinue Reason Start Date End Da te ALBUTEROL INHL Inhale into the lungs. DELETE-Therapy completed 02/21/2025 Ceramides 1,3,6-11 (CERAVE DAILY MOISTURIZING) Top LotionIndications:Dry skin APPLY TOPICALLY TO AFFECTED AREA NEEDED DELETE-Therapy completed 10/11/2022 02/21/2025 fluticasone propionate (FLONASE) 50 mcg/actuation Nasl [place], SuspensionIndications :Nasal sinus congestion 1 [place] by Nasal route daily. DELETE-Therapy completed 07/27/2023 02/21/2025 fluticasone propionate (FLONASE) 50 mcg/actuation Nasl [place], SuspensionIndications :Nasal sinus congestion by Nasal route daily. DELETE-Therapy completed 02/21/2025 hydrocortisone (ANUSOL-HC) 25 mg Rect SuppositoryIndication s:Hemorrhoids, unspecified hemorrhoid type Place 1 Suppository rectally every 12 hours. DELETE-Therapy completed 02/25/2023 02/21/2025 hyoscyamine (ANASPAZ;LEVSIN) 0.125 mg Oral TabletIndications:Irr itable bowel syndrome with diarrhea Take 1 Tablet by mouth every 4 hours as needed for Cramping or Diarrhea. DELETE-Therapy completed 02/25/2023 02/21/2025 methylPREDNISolone (MEDROL DOSPACK) 4 mg Oral Tablets, Dose PackIndications:Nasal sinus congestion See package instructions DELETE-Therapy completed 07/27/2023 02/21/2025 omeprazole (PRILOSEC) 40 mg Oral Capsule, Delayed Release(E.C.)Indicati ons:Gastroesophageal reflux disease with esophagitis, unspecified whether hemorrhage Take 1 Capsule by mouth daily. DELETE-Therapy completed 02/25/2023 02/21/2025 oxyCODONE-acetaminoph en (PERCOCET) 5-325 mg Oral TabletIndications:Courtney sed displaced fracture of lateral malleolus of left fibula, initial encounter Take 1 Tablet by mouth every 8 hours as needed for Acute Pain (R52). 02/20/2025 02/22/2025 documented as of this encounter Historical Medications * This list may reflect changes made after this encounter. sertraline (ZOLOFT) 100 mg Oral Tablet Take 75 mg by mouth nightly. 01/24/2025 fexofenadine (DEVAN) 180 mg Oral Tablet Take 180 mg by mouth every 24 hours. 01/24/2025 EPINEPHrine (EPIPEN) 0.3 mg/0.3 mL Inj Auto-Injector Inject 0.3 mg into the muscle as needed. 01/30/2025 atorvastatin (LIPITOR) 20 mg Oral Tablet Take 20 mg by mouth daily. 02/04/2025 added in this encounter Active and Recently Administered Medications Times are shown in EST. Scheduled Medication Order 02/20/2025 02/21/2025 02/22/2025 ceFAZolin (ANCEF) 2 g in sterile water 20 mL IVP 2 g, Intravenous, ONCE PREPROCEDURE, 1 dose, On Tue02/22/25 at 0645, Draw up 5.5 mL of Sterile Water for Injection and inject into one ceFAZolin 2 g vial. Shake vials until powder is completely dissolved. Then further dilute to a total volume of 20 mL for IV push administration. Administer intravenous push (IVP) over a period of 3 to 5 minutes., Reason for Therapy: Surgical Prophylaxis 0645 (Due) dexAMETHasone (DECADRON) injection 4 mg (COMPLETED) 4 mg, Perineural, ONCE PREPROCEDURE, 1 dose, On Tue02/22/25 at 0700, Pre-op (Holding/SDS Meds) 0719 (Given - Provid er: Shelli Forte RN) midazolam (VERSED) injection 2 mg (COMPLETED) 2 mg, Intravenous, ONCE, 1 dose, On Tue02/22/25 at 0700, VESICANT , Pre-op (Holding/SDS Meds) 0719 (Given - Provid er: Shelli Forte RN) scopolamine (TRANSDERM-SCOP) 1 mg over 3 days 1 Patch 1 Patch, Transdermal, ONCE PREPROCEDURE, 1 dose, On Tue02/22/25 at 0645, Place patch behind ear. Remove in 24 hours. To be given in SDS/Pre-op Holding Area. Transderm-Scop patch delivers scopolamine 1 mg per 72 hours, Administer over 24 Hours, Pre-op (Holding/SDS Meds) 0709 (Patch Applied - Provider: Noris Piper RN)0949 (Due: Patch Removed - Provider: Automatic Discharge Provider - Comment: Time automatically adjusted from order being discontinued) PRN Medication Order 02/20/2025 02/21/2025 02/22/2025 acetaminophen (TYLENOL) tablet 1,000 mg (COMPLETED) 1,000 mg, Oral, PREPROCEDURE, 1 dose, Starting on Tue02/22/25 at 0645, Until Tue02/22/25 at 0709, Coanalgesic, Do not give if patient received acetaminophen within the last 6 hours Maximum adult dose of acetaminophen is 4000 mg from all sources in 24 hours., Pre-op (Holding/SDS Meds) 0709 (Given - Provid er: Noris Piper RN) bacitracin Zinc-Polymyxin B (POLYSPORIN) topical ointment (CANCELED) INTRAPROCEDURE, Starting on Tue02/22/25 at 0816, Until Tue02/22/25 at 0949, Intra-op 0816 (Given - Provid er: Barron Pickett MD) bupivacaine (MARCAINE/SENSORCAINE) 0.5 % (5 mg/mL) injection 40 mL 40 mL, Perineural, PRN, 2 doses, Starting on Tue02/22/25 at 0652, Until Tue02/22/25 at 1354, For perineural block, For administration during pre-op peripheral block, Pre-op (Holding/SDS Meds) 0719 (Given - Provid er: Shelli Forte RN) fentaNYL (SUBLIMAZE) injection 25 mcg 25 mcg, Intravenous, EVERY 5 MIN PRN, Starting on Tue02/22/25 at 0815, Until Tue02/22/25 at 1354, Pain, For initial pain. Maximum dose not to exceed 100 mcg., PACU HYDROmorphone (DILAUDID) injection 0.5 mg 0.5 mg, Intravenous, EVERY 10 MIN PRN, 4 doses, Starting on Tue02/22/25 at 0815, Until Tue02/22/25 at 1354, Breakthrough Pain, Do not exceed 2 mg in one hour unless otherwise ordered by the Anesthesia Coordinator For pain unrelieved by fentanyl or oral opioid, PACU lactated ringers infusion Intravenous, at 50 mL/hr, PREPROCEDURE CONTINUOUS, Starting on Tue02/22/25 at 0645, Until Tue02/22/25 at 1354, To be given in SDS/Pre-op Holding Area, Pre-op (Holding/SDS Meds) 0709 (New Bag - Prov ider: Noris Piper RN)0733 (IV Paused - Provider: Rey Winkler CRNA - Comment: Switch to gravity)0734 (IV Restarted - Provider: Rey Winkler CRNA)0813 (Anesthesia Volume Adjustment - Provider: Rey Winkler CRNA)1354 (Due: Order Ending - Provider: Automatic Discharge Provider - Comment: [Order ends at this time. Document the following action when infusion is complete: Stopped]) ondansetron (ZOFRAN) injection 4 mg(Linked Group 1) 4 mg, Intravenous, ONCE PRN, 1 dose, Starting on Tue02/22/25 at 0815, Until Tue02/22/25 at 1354, Nausea, First Line Antiemetic, Do not give if patient received granisetron (Kytril) or ondansetron (Zofran) within 4 hours., PACU ondansetron (ZOFRAN-ODT) disintegrating tablet 8 mg(Linked Group 1) 8 mg, Oral, ONCE PRN, 1 dose, Starting on Tue02/22/25 at 0815, Until Tue02/22/25 at 1354, Nausea, First Line Antiemetic, Do not give if patient received granisetron (Kytril) or ondansetron (Zofran) within 4 hours., PACU oxyCODONE (ROXICODONE) immediate release tablet 5 mg 5 mg, Oral, EVERY 1 HOUR PRN, Starting on Tue02/22/25 at 0815, Until Tue02/22/25 at 1354, Pain, When tolerating oral intake. Maximum dose not to exceed 10 mg unless otherwise directed by the Anesthesia Coordinator., PACU 0847 (Given - Provid er: Alecia Montiel RN) promethazine (PHENERGAN) 12.5 mg in sodium chloride 0.9% 10 mL injection(Linked Group 2) 12.5 mg, Intravenous, PRN, Starting on Tue02/22/25 at 0815, Until Tue02/22/25 at 1354, Nausea, Second Line Antiemetic, For nausea unrelieved by droperidol or pre-op antiemetic. Begin with lowest dose unless otherwise directed. Give remainder of dose if nausea unrelieved in 20 minutes. Not to exceed 25 mg in one hour unless otherwise ordered by Anesthesia Coordinator. VESICANT , PACU promethazine (PHENERGAN) 6.25 mg in sodium chloride 0.9% 10 mL injection(Linked Group 2) 6.25 mg, Intravenous, PRN, Starting on Tue02/22/25 at 0815, Until Tue02/22/25 at 1354, Nausea, Second Line Antiemetic, For nausea unrelieved by droperidol or pre-op antiemetic. Begin with lowest dose unless otherwise directed. Give remainder of dose if nausea unrelieved in 20 minutes. Not to exceed 25 mg in one hour unless otherwise ordered by Anesthesia Coordinator. VESICANT , PACU Linked Groups Order Group 1: ondansetron (ZOFRAN) injection 4 mgJump to med 4 mg, Intravenous, ONCE PRN, 1 dose, Starting on Tue02/22/25 at 0815, Until Tue02/22/25 at 1354, Nausea, First Line Antiemetic, Do not give if patient received granisetron (Kytril) or ondansetron (Zofran) within 4 hours., PACU Or ondansetron (ZOFRAN-ODT) disintegrating tablet 8 mgJump to med 8 mg, Oral, ONCE PRN, 1 dose, Starting on Tue02/22/25 at 0815, Until Tue02/22/25 at 1354, Nausea, First Line Antiemetic, Do not give if patient received granisetron (Kytril) or ondansetron (Zofran) within 4 hours., PACU Group 2: promethazine (PHENERGAN) 6.25 mg in sodium chloride 0.9% 10 mL injectionJump to med 6.25 mg, Intravenous, PRN, Starting on Tue02/22/25 at 0815, Until Tue02/22/25 at 1354, Nausea, Second Line Antiemetic, For nausea unrelieved by droperidol or pre-op antiemetic. Begin with lowest dose unless otherwise directed. Give remainder of dose if nausea unrelieved in 20 minutes. Not to exceed 25 mg in one hour unless otherwise ordered by Anesthesia Coordinator. VESICANT , PACU Or promethazine (PHENERGAN) 12.5 mg in sodium chloride 0.9% 10 mL injectionJump to med 12.5 mg, Intravenous, PRN, Starting on Tue02/22/25 at 0815, Until Tue02/22/25 at 1354, Nausea, Second Line Antiemetic, For nausea unrelieved by droperidol or pre-op antiemetic. Begin with lowest dose unless otherwise directed. Give remainder of dose if nausea unrelieved in 20 minutes. Not to exceed 25 mg in one hour unless otherwise ordered by Anesthesia Coordinator. VESICANT , PACU documented in this encounter Orders Medications Ordered That Alexys ht Not Have Been Administered Count Last Ordered Date First Ordered Date bacitracin Zinc-Polymyxin B (POLYSPORIN) topical ointment 1 02/22/2025 ceFAZolin (ANCEF) 2 g in rica rile water 20 mL IVP 1 02/22/2025 fentaNYL (SUBLIMAZE) injection 25 mcg 1 02/2025 HYDROmorphone (DILAUDID) injection 0.5 mg 1 02/22/2025 ondansetron (ZOFRAN) injection 4 mg 1 02/22 ondansetron (ZOFRAN-ODT) dis integrating tablet 8 mg 1 02/22/2025 promethazine (PHENERGAN) 12. 5 mg in sodium chloride 0.9% 10 mL injection 1 02/22/2025 promethazine (PHENERGAN) 6.2 5 mg in sodium chloride 0.9% 10 mL injection 1 02/22/2025 Discharge Count Last Ordered Date First Orde red Date DISCHARGE PATIENT 1 02/22/2025 documented in this encounter Care Teams Sh[employer]ler Car Relationship Specialty Start Date End Date No Pcp, Per Patient PCP - General 09/29/24 documented as of this encounter
--- OUTSIDE RECORDS SUMMARY | 2025-02-22 06:52 | XMS_ITS | Encounter Summary ---
Author Organization [place] [address] Care Team Providers Care Cnc Mill Programmer Name Role Phone No Pcp, Per Patient Primary Care Provider Iva franco Reason for Visit * Auth/Cert/Inpt Specialty Diagnoses / Procedures Referred By Contac t Referred To Contact Diagnoses Closed displaced fracture of lateral malleolus of left fibula, initial encounter Closed displaced fracture of lateral malleolus of left fibula, initial encounter [S82.62XA] Procedures IA OPEN TX DISTAL FIBULAR FRACTURE LAT MALLEOLUS OPEN REDUCTION INTERNAL FIXATION LEFT LATERAL MALLEOLUS Referral ID Status Reason Start Date Expiration Date Visits Re quested Visits Authorized [id number] 1 1 Encounter Details Date Type Department Care Team (Latest Contact Info) Description 02/22/2025 6:52 AM EST - 02/22/2025 11:59 PM EST Hospital Encounter [facility] [address] [place] [address] Barron Pickett MD [address] [place] [address] Discharge Disposition: Home or Self Care Social History Tobacco Use Types Packs/Day Years Used Date Smoking Tobacco: Never Passive Smoke Exposure: Past Smokeless Tobacco: Never Comments:passive: mother in household Alcohol Use Standard [...] Freida Yañez MA documented in this encounter Medications at Time [...] 01/24/2025 fluticasone propionate (FLONASE) 50 mcg/actuation Nasl [place], Suspension 2 Sprays by Nasal route daily for 14 days. 15.8 mL 02/15/2025 5 ibuprofen (ADVIL;MOTRIN) 600 mg Oral Tablet Take 1 Tablet by mouth every 8 hours as needed for Pain for up to 30 days. 30 Tablet 02/12/2025 6 LEVOthyroxine (SYNTHROID) 25 mcg Oral TabletIndication s:Hypothyroidism (acquired) Take 1 Tablet by mouth daily. 90 Tablet 07/28/2023 loratadine (CLARITIN REDITABS) 10 mg Oral Tablet, Rapid Dissolve Dissolve 10 mg by mouth daily. 01/29/2025 nalOXone (NARCAN) 4 mg/actuation Nasl [place], Non-Aerosol [place] the contents of one device (0.1mL) into [...] Can be filled 02/25/25 20 Tablet 02/25/2025 sertraline (ZOLOFT) 100 mg Oral Tablet Take [...] 5 days. Post-op medication 20 Tablet 02/22/2025 documented as of this encounter Discharge Disposition Disposition Code Departure Means Destination Home or Self Care documented in this encounter Plan of Treatment Upcoming Encounters Date Type Department Care Team (Late st Contact Info) Description 03/05/2025 9:30 [place] [address] Ulises Ayoub PA [address] [place] [address] documented as of this encounter Goals Goal Patient Goal Type Associated Problems Recent Progress Patient-Stated? Author Maintain a healthy diet, exercise regularly and maintain an ideal body weight General No Nel Madden RMA documented as of this encounter Procedures Procedure Name Priority Date/Time Associated Diagnosis Comments US ANES GUIDANCE FOR NERVE BLOCK STAT 02/22/2025 6:52 AM EST documented in this encounter Results * US ANES GUIDANCE FOR NERVE BLOCK (02/22/2025 6:52 AM EST) Narrative Genericuser, Alfredo - 02/22/2025 6:52 AM EST Ultrasound guided nerve block performed by Anesthesiologist. The study image(s) are for reference only and will not be interpreted by a Radiologist. Refer to the Anesthesia procedure note for image description and procedure details. us Obey Ocasio DO IMG US ORDERABLES Final Resul t documented in this encounter Visit Diagnoses Not on filedocumented in this encounter Care Teams Cnc Mill Programmer Relationship Specialty Start Date End Date No Pcp, Per Patient PCP - General 09/29/24 documented as of this encounter
--- OUTSIDE RECORDS SUMMARY | 2025-02-22 07:30 | XMS_ITS | Encounter Summary ---
Author Organization [facility] [place] [address] Care Team Providers Care Field Radio Technician Name Role Phone No Pcp, Per Patient Primary Care Provider Unavajorge franco Reason for Visit * Auth/Cert/Inpt Specialty Diagnoses / Procedures Referred By Contac t Referred To Contact Diagnoses Closed displaced fracture of lateral malleolus of left fibula, initial encounter Closed displaced fracture of lateral malleolus of left fibula, initial encounter [S82.62XA] Procedures ME OPEN TX DISTAL FIBULAR FRACTURE LAT MALLEOLUS OPEN REDUCTION INTERNAL FIXATION LEFT LATERAL MALLEOLUS Referral ID Status Reason Start Date Expiration Date Visits Re quested Visits Authorized [id number] 1 1 Encounter Details Date Type Department Care Team (Late st Contact Info) Description 02/22/2025 7:30 AM EST - 02/22/2025 8:50 AM EST Surgery [facility] [address] [place] [address] Barron Pickett MD [address] [place] [address] OPEN REDUCTION INTERNAL FIXATION, ANKLE (COVERS LATERAL/MEDIAL MALLEOLUS) Surgery Details Date/Time Status Location OR Service Patient Class Case Class Case Type Trauma Case? 02/22/2025 7:30 AM Posted [facility] Same Day Surgery Semi-Urg ent - 2 Wks Panel 1 Procedure LRB Anes Op Region Wound Class Comments OPEN REDUCTION INTERNAL FIXATION, ANKLE (COVERS LATERAL/MEDIAL MALLEOLUS) Left General w/Block Foot/Ankle Clean OPEN REDUCTION INTERNAL FIXATION LEFT LATERAL MALLEOLUS Surgeon Surgeon Role Service Panel Barron Pickett MD Primary Orthopedics 1 Special Needs REED, MIRYAM SMALL FRAG, PRE-OP POPLITEAL BLOCKSTRYKER NOTIFIED 02/21 MAS documented in this encounter Social History Tobacco Use Types Packs/Day Years [...] Sign Reading Time Taken Comments Blood Pressure 121/68 02/22/2025 8:45 AM EST Pulse 50 02/22/2025 8:45 AM EST Temperature 36.4 C (97.5 F) 02/22/2025 8:47 AM EST Respiratory Rate 18 02/22/2025 8:45 AM EST Oxygen Saturation 100% 02/22/2025 8:45 AM EST Inhaled Oxygen Concentration - - [...] up as scheduled for post-op care +++++++++++++++++++++++++++++++++++++++++++++++++++++++++++++++++++ [facility] Discharge Instructions - Following Anesthesia We appreciate [...] our office at . Get Well Soon! [facility] +++++++++++++++++++++++++++++++++++++++++++++++++++++++++++++++++++ * Attachments The following attachments cannot be sent through Care Everywhere. * How to use an incentive spirometer (Hungarian) documented in this encounter Medications at Time [...] 01/24/2025 fluticasone propionate (FLONASE) 50 mcg/actuation Nasl [place], Suspension 2 Sprays by Nasal route daily [...] daily. 01/29/2025 nalOXone (NARCAN) 4 mg/actuation Nasl [place], Non-Aerosol [place] the contents of one device (0.1mL) into [...] Tablet 02/25/2025 nalOXone (NARCAN) 4 mg/actuation Nasl [place], Non-Aerosol [place] the contents of one device (0.1mL) into [...] Date APPENDECTOMY CYST REMOVAL 2014 from R gum area OVARY SURGERY 1998 right TUBAL LIGATION [...] 02/21/2025) fluticasone propionate (FLONASE) 50 mcg/actuation Nasl [place], Suspension 2 Sprays by Nasal route daily [...] left lateral malleolus. SURGEON: Barron Pickett MD. DATA WAREHOUSE ANALYST: Ulises Ayoub PA-C. An internet marketing assistant was necessary for the procedure, as he [...] unstable ankle injury with a goal of sabianist of normal anatomy, healing, and return of [...] with the operation and expressed clear understandin dequan She is PROCEDURE DETAILS: The patient's operative [...] Pickett MD - 02/22/2025 8:21 AM EST [facility] OPERATIVE/PROCEDURE NOTE Lorie Contreras February 22, 2025 Body mass index is 31.31 kg/m??. PRE-OP DIAGNOSIS: Closed displaced fracture of lateral malleolus of left fibula, initial encounter [S82.62XA] POST-OP DIAGNOSIS: Closed displaced fracture of lateral malleolus of left fibula, initial encounter[S82.62XA] PROCEDURE(S): Procedure(s): OPEN REDUCTION INTERNAL FIXATION LEFT LATERAL MALLEOLUS SURGEON(S): Surgeons and Role: * Barron Pickett MD - Primary DATA WAREHOUSE ANALYST(S): Ulises Ayoub PAC ANESTHESIA: General w/Block SPECIMENS: * No specimens in log * ESTIMATED BLOOD LOSS (mls): 5 *EBL MUST be documented as a numeric value FINDINGS: as expected OTHER INFO: none DISPOSITION/POST PROC COURSE: PACU and dc home Barron Pickett MD Date: 02/22/2025 documented in this encounter Nursing Notes * Belén Maher RN - 02/21/2025 8:41 AM EST Images from the original note were not included. PREPARING FOR YOUR SURGERY Date of Surgery: 02/22 Arrival time: Your surgeon may have already provided this, check your paperwork from the office. Ifnot received, call your surgeon's office. Location: [facility] Medications on the Day of Surgery Take [...] No alcohol 24 hours prior to surgery. Guide Dog Trainer It is important to have a Guide Dog Trainer, someone who is 18 years or older, [...] concern, please reach out to our department [phone]. Hygiene [place] your teeth and gargle the morning of surgery. Shower the morning of surgery or the night before. Do not wear makeup (including eye makeup) lotion, powder, deodorant, perfume, or cologne. Do not shave the operative extremity or near the operative area. Remove nail burundian prior to surgery. This includes artificial nails and gel nail burundian. Shower or bathe with chlorhexidine (CHG) the [...] valuables with you. It is policy that [facility] does not assume responsibility for lost, stolen [...] your Living Will and/or Durable Power of Stone Polisher Hand for Healthcare. Vaccines It is recommended that you do not receive vaccines 7 days before or after surgery. Notify the Surgeon Notify your surgeon if you develop any illness (fever, cold, cough, sore throat, nausea, vomiting, skin rashes etc.) between now and surgery time Notify your surgeon and Pre-admission testing ([phone]) if you have any changes in your healthconditions or if any new medications are ordered between now and surgery.. Questions or Concerns? If you have any questions or concerns, feel free to call the Pre-Admission testing department at [phone]. We want to make sure you feel safe and have an excellent experience while you are here. Do not reply to this message through [facility] as it may not be answered promptly. Same Day Surgery Unit - [facility] at [phone]; [facility]: Park at Entrance 1A Main Entrance, NOT Outpatient Parking. Walk in atrium and go to commercial front load driver. Look for sign at information desk that states Surgery Check In . [facility] [place] [address]. DOORS OPEN AT 5: 30 AM TUE-TUE [...] [place] ([place]); InfectiousDiseases Society of [place] (IDSA); [facility]; Association for Professionals inInfection Control [...] Description 03/05/2025 9:30 [place] [address] Ulises Ayoub PA [address] [place] [address] Pending Results Name Type Priority Associated Diagnoses [...] AND OBLIQUE LOVE 02/22/2025 8:08 AM EST ME OPEN TX DISTAL FIBULAR FRACTURE LAT MALLEOLUS 02/22/2025 7:32 AM EST Closed displaced fracture of lateral malleolus of left fibula, initial encounter Special Needs MIRYAM [place]BR[place] SMALL FRAG, PRE-OP POPLITEAL BLOCKSTRYKER NOTIFIED 02/21 [facility] ANES GUIDANCE FOR NERVE BLOCK [...] office of the ordering clinician. us Barron Pickett MD IMG DIAGNOSTIC IMAGING OR DERABLES Final Result * [...] Given 02/22/2025 7:09 AM EST 1,000 mg bacitracin Zinc-Polymyxin B (POLYSPORIN) topical ointment INTRAPROCEDURE, Starting on Tue02/22/25 at 0816, Until Tue02/22/25 at 0949, Intra-op Given 02/22/2025 8:16 AM EST 1 Tube bupivacaine (MARCAINE/SENSORCAINE) 0.5 % (5 mg/mL) injection [...] 02/21/2025 fluticasone propionate (FLONASE) 50 mcg/actuation Nasl [place], SuspensionIndications :Nasal sinus congestion 1 [place] by Nasal route daily. DELETE-Therapy completed 07/27/2023 02/21/2025 fluticasone propionate (FLONASE) 50 mcg/actuation Nasl [place], SuspensionIndications :Nasal sinus congestion by Nasal route [...] Count Last Ordered Date First Ordered Date ceFAZolin (ANCEF) 2 g in rica rile [...] 02/22/2025 documented in this encounter Care Teams Field Radio Technician Relationship Specialty Start Date End Date No Pcp, Per Patient PCP - General 09/29/24 documented as of this encounter
--- OUTSIDE RECORDS SUMMARY | 2025-02-22 07:33 | XMS_ITS | Encounter Summary ---
Author Organization [place] [address] Care Team Providers Care Legal Instructor Name Role Phone No Pcp, Per Patient Primary Care Provider Unavai labpatricia Reason for Visit * Auth/Cert/Inpt Specialty Diagnoses / Procedures Referred By Contac t Referred To Contact Diagnoses Closed displaced fracture of lateral malleolus of left fibula, initial encounter Closed displaced fracture of lateral malleolus of left fibula, initial encounter [S82.62XA] Procedures [place] OPEN TX DISTAL FIBULAR FRACTURE LAT MALLEOLUS OPEN REDUCTION INTERNAL FIXATION LEFT LATERAL MALLEOLUS Referral ID Status Reason Start Date Expiration Date Visits Re quested Visits Authorized [id number] 1 1 Encounter Details Date Type Department Care Team (Late st Contact Info) Description 02/22/2025 7:33 AM EST Anesthesia Event [facility] [address] [place] [address] Uziel Gandhi MD [address] [facility] [address] [place] [address] Sneha Dyson APRN [address] [place], [place] [id number] Anesthesia Record Procedure Summary Procedure Name Responsible Anesthesiologist Anesthesia Start Time Anesthesia Stop Time OPEN REDUCTION INTERNAL FIXATION, ANKLE (COVERS LATERAL/MEDIAL MALLEOLUS) (Left: Foot/Ankle) Uziel Gandhi MD 02/22/25 0733 02/22/25 0827 Events Date Time Event Comment 02/22/2025 0643 AN Equip Check 0732 0733 An Start 0734 An Start Data 0734 Immediate Pre Anesthetic Ass es 0738 An Induction 0739 An LMA 0741 Anesthesia Ready 0747 Time out 0748 An Tourn Inflated 0749 Incision 0815 An Emergence 0816 Airway Removed 0821 an stop data 0827 Handoff I completed my SBAR handoff to the receiving nurse which has included the followin. Identification of the patient, family, or patient surrogate 2. Identification of the responsible practitioner 3. Pertinent medical history 4. Surgical procedure and reason for procedure 5. Intraoperative anesthetic management 6. All current lines, drains and respiratory support. 7. Outstanding follow up orders (X-rays, consults etc) 8. Expectations/Plans for the early post-procedure period 9. Opportunity for questions and acknowledgement of understanding from the receiving PACU/ICU project manager/team coach 0827 An Stop Meds Name Total lidocaine injection 1% 50 mg propofol (DIPRIVAN) injection 150 mg fentaNYL 50 MCG/ML INJ 100 mcg ondansetron (ZOFRAN) injection 4 mg /2 m L 4 mg dexamethasone (DECADRON) injection 4 mg/ mL 4 mg dexAMETHasone (DECADRON) injection 4 mg midazolam (VERSED) injection 2 mg bupivacaine (MARCAINE) injection 0.5% (P F) 30 mL bupivacaine (MARCAINE) injection 0.5% (P F) 10 mL ceFAZolin (ANCEF) 1 g in sterile water 9 .5 mL IVP 2 g lactated ringers infusion 600 mL * Agents Name O2 N2O Air Et Sevoflurane * Blood No blood administrations on file. Lines, Drains, and Airways Type Details Placement Removal Peripheral IV 02/22/25; 0706; 20; Right; Antecubital; MELODIE RN; 02/22/25; 0948; Therapy completed; Catheter intact, Dressing applied, No Complications 02/22/25 0706 by Noris Piper, ROXI 02/22/25 0948 by Noris Piper, RN Airway Size: 3; Placement D ate: 02/22/25; Placement Time: 0739 (created via procedure documentation); Removal Date: 02/22/25; Removal Time: 0802/22/25 0739 by Rey Winkler CRNA 02/22/25 0816 by Rey Winkler CRNA Incision/Wound 02/22/25; 0749; Clos ed Surgical; Ankle/Malleolus; Left; 02/22/25; 1349 02/22/25 0749 by Lucie Obrien RN 02/22/25 1349 by Discharge Provider, Automatic documented in this encounter Social History Tobacco [...] 10/02/2021 3:09 PM EDFreida Valenzuela MA * Because of a physical, mental or emotional condition, does this person have difficulty doing errands alone such as visiting a doctor's office or shopping? Answer Date of Assessment Author No 10/02/2021 3:09 PM EDFreida Valenzuela MA documented as of this encounter Mental Status * Because of a physical, mental or emotional condition, does this person have serious difficulty concentrating, remembering or making decisions? Answer Entry Date Author No 10/02/2021 3:09 PM EDT Freida Wyatt MA documented in this encounter Procedure Notes * Rey Winkler CRNA - 02/22/2025 7:56 AM ESTAssociated Order(s): Airway Intraop Airway Placement: Date/Time: 02/22/2025 7:39 AM Induction type: IV Mask size: Standard adult Pre-Oxygenation: Standard Mask ventilation: Easy mask ventilation Airway type: LMA - iGel Topical Anesthetic/Lubricant: Lubricant jelly Airway location: Oral Device size: 3 Placement verified: Auscultation, End tidal CO2 and Symmetric chest wall motion Condition: Unchanged and Atraumatic Insertion attempts: 1 Attempt 1 by: Cathi Title: MARQUITA * Uziel Gandhi MD - 02/22/2025 7:31 AM ESTAssociated Order(s): Peripheral Block by Anesthesia Peripheral Block by Anesthesia Procedure Date/Time: 02/22/2025 7:25 AM Patient location during procedure: OR holding area Reason for block: at surgeon's request and post-op pain management Staff and Pre-procedure checks Anesthesiologist: Uziel Gandhi MD Performed: anesthesiologist Preanesthetic Checklist: Allergies confirmed, Block plan confirmed, Necessary block equipment present, Supplemental O2 applied, if needed, Anticoagulant confirmed, Block site marked, Patient identified- 2 criteria, Surgical procedure consent verified, Aseptic technique used, Drug/solution labeled, KEMAL recommended monitors applied, IV access functioning, Sedation given, if needed and Resuscitation equipment available Immediate perianesthetic assessment completed: Yes Patient position: Supine Prep: Chloraprep Monitoring: Mental status assessed, O2 Sat and EKG Position: Peripheral Block Block type: Adductor Canal Block Laterality: Left Injection technique: single-shot Medication(s) Administered: bupivacaine (MARCAINE) injection 0.5% (PF) - Infiltration 10 mL - 02/22/2025 7:25:00 AM Needle Needle type: Pajunk Needle size: 21Gx4 Nerve localization: ultrasound guidance (Adductor Canal block- Sartorius and Vastus Medialis muscle, Femoral artery and Saphenous nerve are identified; the tip of the needle and spread of the local anesthetic around the Saphenous nerve are visualized. Ultrasound image documentation is attached/scanned in epic chart. No anatomical pathology noted during block placement.) Adductor Canal block- Sartorius and Vastus Medialis muscle, Femoral artery and Saphenous nerve are identified; the tip of the needle and spread of the local anesthetic around the Saphenous nerve are visualized. Ultrasound image documentation is attached/scanned in epic chart. No anatomical pathology noted during block placement. Ultrasound probe: linear Ultrasound needle approach: in-plane Assessment Block success: a full evaluation pending Events: Uneventful Heart rate change: no Blood aspirated: no Paresthesia pain: absent Resistance on injection: normal Intermittent incremental injection LA at 5ml Ultrasound Image of the block is attached/scanned to the epic chart. * Uziel Gandhi MD - 02/22/2025 7:29 AM ESTAssociated Order(s): Peripheral Block by Anesthesia Peripheral Block by Anesthesia Procedure Date/Time: 02/22/2025 7:20 AM Patient location during procedure: OR holding area Reason for block: at surgeon's request and post-op pain management Staff and Pre-procedure checks Anesthesiologist: Uziel Gandhi MD Performed: anesthesiologist Preanesthetic Checklist: Allergies confirmed, Block plan confirmed, Necessary block equipment present, Supplemental O2 applied, if needed, Anticoagulant confirmed, Block site marked, Patient identified- 2 criteria, Surgical procedure consent verified, Aseptic technique used, Drug/solution labeled, KEMAL recommended monitors applied, IV access functioning, Sedation given, if needed and Resuscitation equipment available Immediate perianesthetic assessment completed: Yes Patient position: Lateral R Prep: Chloraprep Monitoring: Mental status assessed, O2 Sat and EKG Position: Peripheral Block Block type: Sciatic Nerve Block and Popliteal region Laterality: Left Injection technique: single-shot Medication(s) Administered: midazolam (VERSED) injection - Intravenous 2 mg - 02/22/2025 7:20:00 AM bupivacaine (MARCAINE) injection 0.5% (PF) - Infiltration 30 mL - 02/22/2025 7:20:00 AM dexAMETHasone (DECADRON) injection - Infiltration 4 mg - 02/22/2025 7:20:00 AM Needle Needle type: Pajunk Needle size: 21Gx4 Nerve localization: ultrasound guidance (Popliteal Block: Biceps Femoris muscle (long head), VastusLateralis muscle, Sciatic nerve (Tibia and Common Peroneal nerves), Popliteal artery are identified; the tip of the needle and the spread of the local anesthetic around the Tibial and Common Peronealnerves are visualized. Ultrasound image documentation is attached/scanned in [employer] chart. No anatomical pathology noted during block placement.) Popliteal Block: Biceps Femoris muscle (long head), Vastus Lateralis muscle, Sciatic nerve (Tibia and Common Peroneal nerves), Popliteal artery are identified; the tip of the needle and the spread ofthe local anesthetic around the Tibial and Common Peroneal nerves are visualized. Ultrasound image d ocumentation is attached/scanned in epic chart. No anatomical pathology noted during block placement. Ultrasound probe: linear Ultrasound needle approach: in-plane Assessment Block success: a full evaluation pending Events: Uneventful Heart rate change: no Blood aspirated: no Paresthesia pain: absent Resistance on injection: normal Intermittent incremental injection LA at 5ml Ultrasound Image of the block is attached/scanned to the epic chart. documented in this encounter OR Notes * Anesthesia Postprocedure Evaluation - Uziel Gandhi MD - 02/22/2025 3:38 PM EST Post-Anesthesia Evaluation Note Patient Name: Loire Contreras Patient Date: February 22, 2025 Post-Anesthesia Evaluation Patient Location: PACU Post op vitals: stable Nausea controlled: yes Level of consciousness: awake and alert Post anesthesia pain: adequate analgesia Airway patency: patent Respiratory status: spontaneous ventilation Cardiovascular status: stable Hydration status: euvolemic Perioperative complications: NONE Vitals Value Taken Time BP 121/68 02/22/25 08:45 Resp 18 02/22/25 08:45 SpO2 100 % 02/22/25 08:45 Temp 36.4 ??C (97.5 ??F) 02/22/25 08:47 Pulse 50 02/22/25 08:45 * Anesthesia Preprocedure Evaluation - Uziel Gandhi MD - 02/22/2025 6:51 AM EST Pre-Anesthesia Evaluation Note Patient Name: Lorie Contreras Sex: female Patient : 1980 Age: 44 y.o. Patient Date: February 22, 2025 Procedure(s): OPEN REDUCTION INTERNAL FIXATION LEFT LATERAL MALLEOLUS Anesthesia Evaluation Previous anesthesia. 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 EKG 03/07/24- SR. Opioids : Naive Body mass index is 32.92 kg/m??. Anesthesia Plan ASA 2 Last solid intake: The patient has not eaten within the last 8 hours. Last clear liquid intake: The patient has not had clear liquids within the last 2 hours. Anesthesia Plan: regional and general Induction: intravenous Monitors: STD PONV Risk Score: 3. Score of 3 or more is High Risk for PONV, combination antiemetic prophylaxis isindicated. Informed consent Anesthetic plan and risks discussed with: patient. Chart Reviewed and patient examined documented in this encounter Miscellaneous Notes * PAT Pre Evaluation for Anesthesia - Sneha Dyson APRN - 02/21/2025 10:09 AM EST Pre-Anesthesia Evaluation Note Patient Name: Lorie Contreras Sex: female Patient : 1980 Age: 44 y.o. Patient Date: February 21, 2025 Procedure(s): OPEN REDUCTION INTERNAL FIXATION LEFT LATERAL MALLEOLUS Anesthesia Evaluation Previous anesthesia. 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 EKG 03/07/24- SR. Opioids : Naive Body mass index is 32.92 kg/m??. Anesthesia Plan Anesthesia Plan: regional and general PONV Risk Score: 3. Score of 3 or more is High Risk for PONV, combination antiemetic prophylaxis isindicated. Chart Reviewed documented in this encounter Plan of Treatment Upcoming Encounters Date Type Department Care Team (Late st Contact Info) Description 03/05/2025 9:30 [place] [address] Ulises Ayoub PA [address] [place] [address] documented as of this encounter Goals Goal Patient Goal Type Associated Problems Recent Progress Patient-Stated? Author Maintain a healthy diet, exercise regularly and maintain an ideal body weight General No Nel Madden RMA documented as of this encounter Procedures Procedure Name Priority Date/Time Associated Diagnosis Comments INTRAOP AIRWAY PLACEMENT Routine 02/22/2025 7:39 AM EST PERIPHERAL BLOCK Routine 02/22/2025 7:25 AM EST PERIPHERAL BLOCK Routine 02/22/2025 7:20 AM EST documented in this encounter Results * INTRAOP AIRWAY PLACEMENT (02/22/2025 7:39 AM EST) Narrative [facility] - 02/22/2025 7:39 AM EST Rey Winkler CRNA 02/22/2025 7:57 AM Intraop Airway Placement: Date/Time: 02/22/2025 7:39 AM Induction type: IV Mask size: Standard adult Pre-Oxygenation: Standard Mask ventilation: Easy mask ventilation Airway type: LMA - iGel Topical Anesthetic/Lubricant: Lubricant jelly Airway location: Oral Device size: 3 Placement verified: Auscultation, End tidal CO2 and Symmetric chest wall motion Condition: Unchanged and Atraumatic Insertion attempts: 1 Attempt 1 by: Cathi Title: FIRE HOSE CURER us Uziel Gandhi MD [place] ANESTHESIA Final Result [facility] [address] [place] [address] * Peripheral Block by Anesthesia (02/22/2025 7:25 AM EST) Narrative [facility] - 02/22/2025 7:25 AM EST Uziel Gandhi MD 02/22/2025 7:31 AM Peripheral Block by Anesthesia Procedure Date/Time: 02/22/2025 7:25 AM Patient location during procedure: OR holding area Reason for block: at surgeon's request and post-op pain management Staff and Pre-procedure checks Anesthesiologist: Uziel Gandhi MD Performed: anesthesiologist Preanesthetic Checklist: Allergies confirmed, Block plan confirmed, Necessary block equipment present, Supplemental O2 applied, if needed, Anticoagulant confirmed, Block site marked, Patient identified- 2 criteria, Surgical procedure consent verified, Aseptic technique used, Drug/solution labeled, KEMAL recommended monitors applied, IV access functioning, Sedation given, if needed and Resuscitation equipment available Immediate perianesthetic assessment completed: Yes Patient position: Supine Prep: Chloraprep Monitoring: Mental status assessed, O2 Sat and EKG Position: Peripheral Block Block type: Adductor Canal Block Laterality: Left Injection technique: single-shot Medication(s) Administered: bupivacaine (MARCAINE) injection 0.5% (PF) - Infiltration 10 mL - 02/22/2025 7:25:00 AM Needle Needle type: Pajunk Needle size: 21Gx4 Nerve localization: ultrasound guidance (Adductor Canal block- Sartorius and Vastus Medialis muscle, Femoral artery and Saphenous nerve are identified; the tip of the needle and spread of the local anesthetic around the Saphenous nerve are visualized. Ultrasound image documentation is attached/scanned in epic chart. No anatomical pathology noted during block placement.) Adductor Canal block- Sartorius and Vastus Medialis muscle, Femoral artery and Saphenous nerve are identified; the tip of the needle and spread of the local anesthetic around the Saphenous nerve are visualized. Ultrasound image documentation is attached/scanned in epic chart. No anatomical pathology noted during block placement. Ultrasound probe: linear Ultrasound needle approach: in-plane Assessment Block success: a full evaluation pending Events: Uneventful Heart rate change: no Blood aspirated: no Paresthesia pain: absent Resistance on injection: normal Intermittent incremental injection LA at 5ml Ultrasound Image of the block is attached/scanned to the epic chart. us Uziel Gandhi MD ANESTHESIA ORDERABLES Final Result Performing Organization Address City/State/[facility] Co de Phone Number [facility] [address] [place] [phone] * Peripheral Block by Anesthesia (02/22/2025 7:20 AM EST) Narrative [facility] - 02/22/2025 7:20 AM EST Uziel Gandhi MD 02/22/2025 7:31 AM Peripheral Block by Anesthesia Procedure Date/Time: 02/22/2025 7:20 AM Patient location during procedure: OR holding area Reason for block: at surgeon's request and post-op pain management Staff and Pre-procedure checks Anesthesiologist: Uziel Gandhi MD Performed: anesthesiologist Preanesthetic Checklist: Allergies confirmed, Block plan confirmed, Necessary block equipment present, Supplemental O2 applied, if needed, Anticoagulant confirmed, Block site marked, Patient identified- 2 criteria, Surgical procedure consent verified, Aseptic technique used, Drug/solution labeled, KEMAL recommended monitors applied, IV access functioning, Sedation given, if needed and Resuscitation equipment available Immediate perianesthetic assessment completed: Yes Patient position: Lateral R Prep: Chloraprep Monitoring: Mental status assessed, O2 Sat and EKG Position: Peripheral Block Block type: Sciatic Nerve Block and Popliteal region Laterality: Left Injection technique: single-shot Medication(s) Administered: midazolam (VERSED) injection - Intravenous 2 mg - 02/22/2025 7:20:00 AM bupivacaine (MARCAINE) injection 0.5% (PF) - Infiltration 30 mL - 02/22/2025 7:20:00 AM dexAMETHasone (DECADRON) injection - Infiltration 4 mg - 02/22/2025 7:20:00 AM Needle Needle type: Pajunk Needle size: 21Gx4 Nerve localization: ultrasound guidance (Popliteal Block: Biceps Femoris muscle (long head), Vastus Lateralis muscle, Sciatic nerve (Tibia and Common Peroneal nerves), Popliteal artery are identified; the tip of the needle and the spread of the local anesthetic around the Tibial and Common Peroneal nerves are visualized. Ultrasound image documentation is attached/scanned in epic chart. No anatomical pathology noted during block placement.) Popliteal Block: Biceps Femoris muscle (long head), Vastus Lateralis muscle, Sciatic nerve (Tibia and Common Peroneal nerves), Popliteal artery are identified; the tip of the needle and the spread of the local anesthetic around the Tibial and Common Peroneal nerves are visualized. Ultrasound image documentation is attached/scanned in epic chart. No anatomical pathology noted during block placement. Ultrasound probe: linear Ultrasound needle approach: in-plane Assessment Block success: a full evaluation pending Events: Uneventful Heart rate change: no Blood aspirated: no Paresthesia pain: absent Resistance on injection: normal Intermittent incremental injection LA at 5ml Ultrasound Image of the block is attached/scanned to the epic chart. us Uziel Gandhi MD ANESTHESIA ORDERABLES Final Result Performing Organization Address City/State/[facility] Co de Phone Number [address] [phone] documented in this encounter Visit Diagnoses Not on filedocumented in this encounter Administered Medications Inactive Administered Medications - up to 1 most recent administrations Medication Order MAR Action Action Date Dose Rate Site bupivacaine (MARCAINE/SENSORCAINE) 0.5 % (5 mg/mL) injection Infiltration, ONCE PRN, Starting on Tue02/22/25 at 0720, Until Tue02/22/25 at 0720, Anesthesia Intra-op Given 02/22/2025 7:20 AM EST 30 mL bupivacaine (MARCAINE/SENSORCAINE) 0.5 % (5 mg/mL) injection Infiltration, ONCE PRN, Starting on Tue02/22/25 at 0725, Until Tue02/22/25 at 0725, Anesthesia Intra-op Given 02/22/2025 7:25 AM EST 10 mL ceFAZolin (ANCEF) 1 g in sterile water 9.5 mL IVP Intravenous, CONTINUOUS PRN, Starting on Tue02/22/25 at 0742, Until Tue02/22/25 at 0827, Anesthesia Intra-op New Bag 02/22/2025 7:42 AM EST 2 g dexAMETHasone (DECADRON) injection Infiltration, ONCE PRN, Starting on Tue02/22/25 at 0720, Until Tue02/22/25 at 0720, Anesthesia Intra-op Given 02/22/2025 7:20 AM EST 4 mg dexAMETHasone (DECADRON) injection Intravenous, PRN (Anesthesia), Starting on Tue02/22/25 at 0738, Until Tue02/22/25 at 0827, Anesthesia Intra-op Given 02/22/2025 7:38 AM EST 4 mg fentaNYL (SUBLIMAZE) injection Intravenous, PRN (Anesthesia), Starting on Tue02/22/25 at 0738, Until Tue02/22/25 at 0827, Anesthesia Intra-op Given 02/22/2025 7:44 AM EST 50 mcg lactated ringers infusion Intravenous, at 50 mL/hr, PREPROCEDURE CONTINUOUS, Starting on Tue02/22/25 at 0645, Until Tue02/22/25 at 1354, To be given in SDS/Pre-op Holding Area, Pre-op (Holding/SDS Meds) IV Restarted 02/22/2025 7:34 AM EST lidocaine 1% 10 mg/mL (1 %) injection Intravenous, PRN (Anesthesia), Starting on Tue02/22/25 at 0738, Until Tue02/22/25 at 0827, Anesthesia Intra-op Given 02/22/2025 7:38 AM EST 50 mg midazolam (VERSED) injection Intravenous, ONCE PRN, Starting on Tue02/22/25 at 0720, Until Tue02/22/25 at 0720, Anesthesia Intra-op Given 02/22/2025 7:20 AM EST 2 mg ondansetron (ZOFRAN) injection Intravenous, PRN (Anesthesia), Starting on Tue02/22/25 at 0808, Until Tue02/22/25 at 0827, Anesthesia Intra-op Given 02/22/2025 8:08 AM EST 4 mg propofoL (DIPRIVAN) injection Intravenous, PRN (Anesthesia), Starting on Tue02/22/25 at 0738, Until Tue02/22/25 at 0827, Anesthesia Intra-op Given 02/22/2025 7:38 AM EST 150 mg documented in this encounter Care Teams Legal Instructor Relationship Specialty Start Date End Date No Pcp, Per Patient PCP - General 09/29/24 documented as of this encounter
--- NOTE | 2025-02-28 23:57 | ED_ITS ---
Discharge Plan Disposition Patient Disposition: Home, Self-Care Prescriptions Prescriptions: No Action hydrocortisone 2.5 % cream 1 applic topical BID PRN (Reason: skin irritation) Qty: 30 1RF sertraline [Zoloft] 100 mg tablet 150 mg PO DAILY Qty: 135 3RF cholecalciferol (vitamin D3) 25 mcg (1,000 unit) tablet 25 mcg PO DAILY Qty: 90 4RF famotidine 20 mg tablet See Rx Instructions .ROUTE .COMPLEX Qty: 90 0RF Dose Instruction: TAKE 1 TABLET BY MOUTH AT BEDTIME NIGHTLY Rx Instructions: TAKE 1 TABLET BY MOUTH AT BEDTIME NIGHTLY fexofenadine 180 mg tablet 180 mg PO Q24H Qty: 90 3RF levothyroxine 25 mcg tablet 25 mcg PO DAILY Qty: 90 0RF loratadine [Claritin RediTabs] 10 mg tablet,disintegrating 10 mg PO DAILY Qty: 90 3RF triamcinolone acetonide 0.1 % cream 1 applic topical BID Qty: 80 3RF epinephrine 0.3 mg/0.3 mL auto-injector 0.3 ml SQ Q5-15M PRN (Reason: anaphylaxis) Qty: 2 0RF Rx Instructions: do not exceed 2 doses per episode albuterol sulfate 90 mcg/actuation HFA aerosol inhaler 2 puff inhalation Q4-6H PRN (Reason: shortness of breath or wheezing) Qty: 8.5 0RF (DME) lancets Misc See Rx Instructions .MEDSUPPLY Qty: 200 3RF Rx Instructions: As directed (DME) blood-glucose meter [Blood Glucose Monitoring] Kit See Rx Instructions .ROUTE .MEDSUPPLY Qty: 1 0RF Rx Instructions: Monitor BG TID (DME) Blood Glucose Test Strip See Rx Instructions .ROUTE .MEDSUPPLY Qty: 50 12RF Rx Instructions: Monitor BG TID atorvastatin [Lipitor] 20 mg tablet 20 mg PO DAILY Qty: 90 3RF Referrals Follow up/Referrals: Art Fiore MD [Primary Care Provider, Family Practice] - See instructions Activity Restrictions/Add. Instructions Additional Instructions/Restrictions: Please follow-up with your primary care provider. Please return to the emergency department if you develop any new or worsening symptoms or become concerned for your health. Clinical Impressions Clinical Impression: Encounter for replacement of cast Print Language Print Language: Upper Sorbian Discharge ED Provider: [facility] HPI General Chief complaint: Medical Clearance Stated complaint: broken foot, leg, needs splint reapplied Time Seen by Provider: 02/28/25 23:51 History of Present Illness HPI narrative: 44-year-old female presents after her splint came off. She had foot surgery done on her left lateral malleolus at an outside hospital within the last week. The splint has become degraded and she took it the rest the way prior to arrival. She denies any other significant concerns. Reports the swelling is going down. Request that we reapply the splint. Related Data Previous Rx's ?Medication ?Instructions ?Recorded hydrocortisone 2.5 % topical cream 1 applic topical BI D PRN skin 12/20/23 irritation #30 grams albuterol sulfate 90 mcg/actuation 2 puff inhalation Q 4-6H PRN 05/08/24 aerosol inhaler shortness of breath or wheez ing #8.5 grams lancets #200 ea 12/05/24 blood sugar diagnostic (Blood #50 ea 01/24/25 Glucose Test strips) blood-glucose meter (Blood Glucose #1 ea 01/24/25 Monitoring kit) cholecalciferol (vitamin D3) 25 25 mcg PO DAILY #90 ta bs 01/24/25 mcg (1,000 unit) tablet famotidine 20 mg tablet See Rx Instructions .Route 1 03/26/24 .COMPLEX #90 tabs fexofenadine 180 mg tablet 180 mg PO Q24H #90 tabs levothyroxine 25 mcg tablet 25 mcg PO DAILY #90 tabs 1 03/26/24 loratadine 10 mg disintegrating 10 mg PO DAILY #90 tab s 01/24/25 tablet (Claritin RediTabs) sertraline 100 mg tablet (Zoloft) 150 mg (1.5 x 100 mg ) PO DAILY 01/24/25 #135 tabs triamcinolone acetonide 0.1 % 1 applic topical BID #80 grams 01/24/25 topical cream epinephrine 0.3 mg/0.3 mL 0.3 ml SQ Q5-15M PRN anaphyl axis 01/30/25 injection, auto-injector #2 ea atorvastatin 20 mg tablet (Lipitor) 20 mg PO DAILY #90 tabs 02/04/25 Allergies Allergy/AdvReac Type Severity Reaction Status Date / Time acetaminophen (From Vicodin) Allergy Severe Anaphylaxis Verified 01/24/25 10:15 hydrocodone (From Vicodin) Allergy Severe Anaphylaxis Verified 01/24/25 10:15 guaifenesin (From Mucinex) Allergy Unknown Verified 01/24/25 10:15 allergy reaction PFSH [facility] Disclaimer: The information contained in this section may have been updated after the patient was seen, as this information can be updated by other users. Medical History GERD (gastroesophageal reflux disease) Pediculosis Hypoglycemia Eczema Vitamin D deficiency Acquired hypothyroidism Anxiety Thyroid dysfunction Irregular bleeding Endometriosis Surgical History H/O tubal ligation History of appendectomy S/P removal of right ovary Social History Smoking Status: Never smoker alcohol intake: current alcohol intake frequency: holidays/special occasions only substance use type: denies use current occupational status: unemployed Travel in the last 8 weeks?: None number of children: 1 Have you lived/traveled outside [place] in past 30 days?: No Contact w/someone who lives/traveled outside [place] past 30 days?: No Exposure to someone with infectious disease in past 14 days?: No Do you have a fever (greater than 100.4 F or 38 C)?: No Have you tested positive for COVID-19?: No Exposed to someone with COVID-19 in past 14 days?: No Do you have a sore throat?: No Do you have a cough?: No Do you have any weakness?: No Do you have any diarrhea?: No Are you experiencing any unusual bleeding?: No Do you have any muscle aches/pain?: No Do you have any abdominal pain?: No Are you experiencing loss of taste or smell?: No Other Medical History Have you received the Pneumonia Vaccine: No ROS Obtained: Yes All systems reviewed & no additional complaints except as documented Physical Exam General General appearance: alert and in no apparent distress Head Head exam: atraumatic and normocephalic Eye Eye exam: Present normal appearance, PERRL and EOMI ENT ENT exam: Present normal oropharynx and normal external ear exam Neck Neck exam: Present normal inspection and full ROM Chest Chest inspection: Present normal inspection and symmetric chest wall rise; Absent tenderness Respiratory Respiratory exam: Present normal lung sounds bilaterally; Absent respiratory distress Cardiovascular Cardiovascular exam: Present regular rate and normal rhythm Abdominal Exam Abdominal exam: Present soft; Absent distention, tenderness or guarding Extremities Exam Extremities exam: Present normal inspection and edema (Left lower extremity edema. We did not uncover her incision sites); Absent joint swelling Back Exam Back exam: Present normal inspection; Absent tenderness Neurological Exam Neurological exam: Present alert and oriented X3; Absent motor sensory deficit Psychiatric Psychiatric exam: Present normal affect and normal mood Skin Skin exam: Present warm, dry and normal color Lymphatic Lymphatic Findings: no adenopathy Medical Decision Making Medical Records Medical records reviewed: Yes I reviewed the patient's medical records. Screening: Per USPSTF and CDC recommendations, given the prevalence of disease in our region, it is our hospital?s policy to screen for HIV and viral Hepatitis for all patients aged 18 and over and those with ongoing risk factors. Jose Inquiry Pt receiving controlled substance: No Jose was queried for this patient: No Vital Signs: 03/01/25 00:11 03/01/25 00:45 Temperature 97.9 F 98.0 F Temperature Source Oral Oral Pulse Rate 80 Pulse Rate [Right] 83 Respiratory Rate 22 20 Blood Pressure 160/100 H Blood Pressure [Right Arm] 162/115 H Blood Pressure Mean [Right Arm] 130 Blood Pressure Source Automatic Cuff Blood Pressure Position Sitting 02 Sat by Pulse Oximetry 95 Oxygen Delivery Method Room Air Room Air Lab Data Lab results reviewed: Yes I reviewed the patient's lab results. Medical Decision Narrative: 44-year-old female with history of recent left foot surgery presents after splint became degraded and needs replacement. The splint was satisfactorily replaced. Patient was discharged in stable condition with some additional supplies. Procedures Risk/Benefits of Procedure(s) Were Explained: Yes Orthopedic Splinting/Casting Injury #1: Side: left Lower Extremity Injury Location: lower leg and foot Lower Extremity Immobilizer: stirrup splint Post Cast/Splinting Neuro Status: intact Post Cast/Splinting Vasc Status: intact Critical Care Critical Care Time Critical Care Time: No
[2025-03-01 00:11] VITALS: BP 162/115; PULSE 83; RESP 22; TEMP 36.6; O2SAT 95; BMI 31.2
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
--- OUTSIDE RECORDS SUMMARY | 2025-03-01 00:14 | XMS_ITS | Encounter Summary ---
Author Organization [facility] [place] [phone] Care Team Providers Care Physical Metallurgist Name Role Phone No Pcp, Per Patient Primary Care Provider Iva franco Encounter Details Date Type Department Care Team (Latest Contact Info) Description 02/22/2025 Travel Social History Tobacco Use Types Packs/Day Years [...] of Assessment Author No 10/02/2021 3:09 PM ROBERTT Freida Wyatt MA * Is the person [...] Freida Yañez MA documented in this encounter Plan of Treatment Upcoming Encounters Date Type Department Care Team (Late st Contact Info) Description 03/05/2025 9:30 [place] [address] Ulises Ayoub PA [address] [place] [address] documented as of this encounter Goals Goal Patient Goal Type Associated Problems Recent Progress Patient-Stated? Author Maintain a healthy diet, exercise regularly and maintain an ideal body weight General No Nel Madden RMA documented as of this encounter Visit Diagnoses Not on filedocumented in this encounter Care Teams Physical Metallurgist Relationship Specialty Start Date End Date No Pcp, Per Patient PCP - General 09/29/24 documented as of this encounter
--- OUTSIDE RECORDS SUMMARY | 2025-03-01 00:14 | XMS_ITS | Encounter Summary ---
Author Organization [place] [address] Care Team Providers Care Multimedia Educational Specialist Name Role Phone Ignacia Wade SCALE MODEL MAKER Unavailable +[phone] Chaya Awad MD Primary Care Provider [phone] Ignacia Wade SCALE MODEL MAKER Unavailable + Samanta Faye MD Primary Care Provider + [phone] No Pcp, Per Patient Primary Care Provider Iva franco Encounter Details Date Type Department Care Team (Late st Contact [facility]) Description 07/04/2019 Lab Requisition [facility] [place] [address] Ezequiel Ashby MD Cough Social History Tobacco Use Types Packs/Day Years Used Date Smoking Tobacco: Never Smokeless Tobacco: Never Alcohol Use Standard Drinks/Week Comments No 0 (1 standard drink = 0.6 oz pur e alcohol) PHQ-2 Answer Date Recorded PHQ-2 Score 0 05/22/2019 Sexually Active Control Partners Comments Yes Male [...] hearing? Answer Date of Assessment Author No 04/03/2018 4:01 PM EST Michael Akers RMA * Is the person blind or does he/she have serious difficulty seeing even when wearing glasses? Answer Date of Assessment Author No 04/03/2018 4:01 PM CHIDI Akers Michael SYDNEE Sutton * Does this person have serious difficulty walking or climbing stairs? Answer Date of Assessment Author No 04/03/2018 4:01 PM Michael Felton SYDNEE Sutton * Does this person have difficulty dressing or bathing? Answer Date of Assessment Author No 04/03/2018 4:01 PM CHIDI Michael Akers SYDNEE Sutton * Because of a physical, mental or emotional condition, does this person have difficulty doing errands alone such as visiting a doctor's office or shopping? Answer Date of Assessment Author No 04/03/2018 4:01 PM CHIDI Delphine Michael SYDNEE Sutton documented as of this encounter Mental Status * Because of a physical, mental or emotional condition, does this person have serious difficulty concentrating, remembering or making decisions? Answer Entry Date Author No 04/03/2018 4:01 PM Michael Felton RMA documented in this encounter Plan of Treatment Upcoming Encounters Date Type Department Care Team (Late st Contact Info) Description 03/05/2025 9:30 [place] [address] Ulises Ayoub PA [address] [place] [address] documented as of this encounter Goals Goal Patient Goal Type Associated Problems Recent Progress Patient-Stated? Author Maintain a healthy diet, exercise regularly and maintain an ideal body weight General No Nel Madden RMA documented as of this encounter Procedures Procedure Name Priority Date/Time Associated Diagnosis Comments CORONAVIRUS 2019 (COVID-19) - REF LAB Routine 07/04/2019 10:00 AM EDT Cough documented in this encounter Results * CORONAVIRUS 2019 (COVID-19) - REF LAB (07/04/2019 10:00 AM EDT) CORONAVIRUS [id number] Negative Not Detected 07/05/2019 3:46 PM EDT EXTERNAL LAB Swab NASOPHARYNGEAL STRUCTURE / Unknown 07/04/2019 10:00 AM EDT 07/04/2019 12:49 PM EDT Narrative EXTERNAL LAB - 07/05/2019 3:46 PM EDT Test performed by reference lab: [facility]. See scanned report. Caution should be exercised when interpreting negative results. A negative result does not rule out COVID-19 and cannot be used as sole basis for treatment or patient management decisions. If COVID-19 is still suspected following a negative result, re-testing should be considered. Ezequiel Ashby MD LAB SEND OUT ORDERABLES Concepcion scott Result EXTERNAL LAB See Scanned Report documented in this encounter Visit Diagnoses Diagnosis Cough documented in this encounter Additional Health Concerns Infection Onset Date Last Indicated Resolved Time R/O COVID-19 03/08/2020 03/08/2020 03/08/2020 7:52 PM EST R/O Influenza 03/08/2020 03/08/2020 03/08/2020 7:5 2 PM EST COVID-19 03/08/2020 03/08/2020 03/28/2020 10:1 3 PM EST COVID-19 11/10/2022 11/10/2022 11/30/2022 10:1 2 PM EDT documented as of this encounter Care Teams Multimedia Educational Specialist Relationship Specialty Start Date End Date Chaya Awad MD [address] [place] [address] PCP - General Family Medicine 12/12/15 10/09/21 Ignacia Wade APRN [address] [place] [address] PCP - Family Medicine Nurse Practitioner 07/02/1810/09 [place] [address] [place] [address] PCP - General Family Medicine 10/10/21 04/25/23 No Pcp, Per Patient PCP - General 09/29/24 Ignacia Wade APRN [address] [place] [address] Nurse Practitioner 11/25/15 10/09/21 documented as of this encounter
--- OUTSIDE RECORDS SUMMARY | 2025-03-01 00:14 | XMS_ITS | Encounter Summary ---
Author Organization [facility] [place] [address] Care Team Providers Care Hanging Flags Decorator Name Role Phone No Pcp, Per Patient Primary Care Provider Iva franco Encounter Details Date Type Department Care Team (Latest Contact Info) Description 02/15/2025 Travel Social History Tobacco Use Types Packs/Day [...] 3:09 PM ROBERTT Freida Wyatt MA * Does this person [...] Description 03/05/2025 9:30 [place] [address] Ulises Ayoub PA [address] [place] [address] documented as of this encounter Goals Goal Patient Goal Type Associated Problems Recent Progress Patient-Stated? Author Maintain a healthy diet, exercise regularly and maintain an ideal body weight General No Nel Madden RMA documented as of this encounter Visit Diagnoses Not on filedocumented in this encounter Care Teams Hanging Flags Decorator Relationship Specialty Start Date End Date No Pcp, Per Patient PCP - General 09/29/24 documented as of this encounter
--- OUTSIDE RECORDS SUMMARY | 2025-03-01 00:15 | XMS_ITS | Encounter Summary ---
Author Organization [place] [address] Care Team Providers Care Equal Opportunity Assistant Name Role Phone No Pcp, Per Patient Primary Care Provider Iva franco Reason for Visit * Reason Onset Date Comments Post-op Call 02/24/2025 Encounter Details Date Type Department Care Team (Late Contact Info) Description 02/24/2025 Nurse Triage [facility] [address] [place] [address] Margi Lindsey RN Social History Tobacco Use Types Packs/Day Years [...] Wyatt MA * Does this person have serious [...] Freida Yañez MA documented in this encounter Miscellaneous Notes * Telephone Encounter - Margi Lindsey RN - 02/24/2025 12:11 AM EST Nurse Triage Call -Chief Complaint: Pt had surgery 02/22 Open reduction internal fixation left lateral malleolus. Pt calling reporting severe pain 12/21 despite using ice, elevations and taking PRN pain medication every 6 hours. Advised pt to call motion graphics designer for ortho cincy -Reported by: Patient -Vitals: No vitals obtained on this call -Disposition per protocol: call PCP now. -Appointment scheduling not applicable based on clinical presentation -Follow up/Concerns: none ' Reason for Disposition [1] SEVERE post-op pain (e.g., excruciating, pain scale 8-10) AND [2] not controlled with pain medications Protocols used: Post-Op Symptoms and [id number] documented in this encounter Plan of Treatment Upcoming Encounters Date Type Department Care Team (Late st Contact Info) Description 03/05/2025 9:30 AM EST Office Visit [address] [address] Ulises Ayoub PA [address] [place] [address] documented as of this encounter Goals Goal Patient Goal Type Associated Problems Recent Progress Patient-Stated? Author Maintain a healthy diet, exercise regularly and maintain an ideal body weight General No Nel Madden RMA documented as of this encounter Visit Diagnoses Not on filedocumented in this encounter Care Teams Equal Opportunity Assistant Relationship Specialty Start Date End Date No Pcp, Per Patient PCP - General 09/29/24 documented as of this encounter
--- OUTSIDE RECORDS SUMMARY | 2025-03-01 00:15 | XMS_ITS | Encounter Summary ---
Author Organization [facility] Address [address] [place] [address] Care Team Providers Care World Renowned Chef And Restaurant Owner Name Role Phone No Pcp, Per Patient Primary Care Provider Iva franco Reason for Visit * Reason Onset Date Comments Patient Question 02/28/2025 Encounter Details Date Type Department Care Team (Late st Contact Info) Description 02/28/2025 Telephone [facility] [address] [place] [address] Barron Pickett MD [address] [place] [address] Patient Question Social History Tobacco Use Types Packs/Day Years [...] encounter Miscellaneous Notes * Telephone Encounter - Barron Lozada ATC - 02/28/2025 4:10 PM EST Spoke with Lorie, She reports her splint is causing pain and needs a new stirrup splint. She plans on coming to the [place] office for [facility] tonight around 7pm * Telephone Encounter - Shira Shen, Clerical Staff - 02/28/2025 4:01 PM ESTSummary: Phone Call Pt called in asking to speak to Barron about her wound care. She stated that she needs supplies. Please contact patient. documented in this encounter Plan of Treatment Upcoming Encounters Date Type Department Care Team (Late st Contact Info) Description 03/05/2025 9:30 AM EST Office Visit [address] [address] Ulises Ayoub PA [address] [place] [address] documented as of this encounter Goals Goal Patient Goal Type Associated Problems Recent Progress Patient-Stated? Author Maintain a healthy diet, exercise regularly and maintain an ideal body weight General No Nel Madden RMA documented as of this encounter Visit Diagnoses Not on filedocumented in this encounter Care Teams World Renowned Chef And Restaurant Owner Relationship Specialty Start Date End Date No Pcp, Per Patient PCP - General 09/29/24 documented as of this encounter
--- OUTSIDE RECORDS SUMMARY | 2025-03-01 00:15 | XMS_ITS | Encounter Summary ---
Author Organization [facility] Address [address] [place] [address] Care Team Providers Care Orthotic Assistant Name Role Phone No Pcp, Per Patient Primary Care Provider Iva franco Reason for Visit * Reason Onset Date Comments Medication Refill 02/19/2025 Encounter Details Date Type Department Care Team (Late st Contact Info) Description 02/19/2025 Refill [facility] [address] [place] [address] Barron Pickett MD [address] [place] [address] Medication Refill Social History Tobacco Use Types Packs/Day Years [...] Freida Yañez MA documented in this encounter Ordered Prescriptions Prescription Sig Dispense Quantity Refills Last Filled Start Date End Date oxyCODONE-acetamin ophen (PERCOCET) 5-325 mg Oral TabletIndications: Closed displaced fracture of lateral malleolus of left fibula, initial encounter Take 1 Tablet by mouth every 8 hours as needed for Acute Pain (R52) for up to 7 days. 21 Tablet 02/19/2025 02/20/2025 documented in this encounter Plan of Treatment Upcoming Encounters Date Type Department Care Team (Late st Contact Info) Description 03/05/2025 9:30 AM EST Office Visit [facility] [address] [place] [address] Ulises Ayoub PA [address] [place] [address] documented as of this encounter Goals Goal Patient Goal Type Associated Problems Recent Progress Patient-Stated? Author Maintain a healthy diet, exercise regularly and maintain an ideal body weight General No Nel Madden RMA documented as of this encounter Visit Diagnoses Diagnosis Closed displaced fracture of lateral malleolus of left fibula, initial encounter- Primary documented in this encounter Care Teams Orthotic Assistant Relationship Specialty Start Date End Date No Pcp, Per Patient PCP - General 09/29/24 documented as of this encounter
--- OUTSIDE RECORDS SUMMARY | 2025-03-01 00:15 | XMS_ITS | Encounter Summary ---
Author Organization [facility] Address [address] [place] [address] Care Team Providers Care Front Attendant Name Role Phone No Pcp, Per Patient Primary Care Provider Iva franco Reason for Referral * Durable Medical Equipment (Routine) - Pending Review Specialty Diagnoses / Procedures Referred By Contac t Referred To Contact Diagnoses Closed displaced fracture of lateral malleolus of left fibula, initial encounter Barron Pickett MD [address] [place] [address] Phone: tel: fax: Referral ID Status Reason Start Date Expiration Date V isits Requested Visits Authorized [id number] Pending Review 02/20/2025 02/20/2026 1 1 Question Answer DME Product: Rolling Walker ([id number]) - w seat attachment Other (use comments) - Shower seat/chair Patient Height: 5'2 Patient Weight: 180lb Length of Need? 6-8 weeks Laterality: Left Encounter Details Date Type Department Care Team (Late st Contact Info) Description 02/20/2025 Orders Only [facility] [address] [place] [address] Barron Lozada, ATC Closed displaced fracture of lateral malleolus [...] Freida Wyatt MA documented in this encounter Plan of Treatment Upcoming Encounters Date Type Department Care Team (Late st Contact Info) Description 03/05/2025 9:30 AM EST Office Visit [facility] [address] [place] [address] Ulises Ayoub PA [address] [place] [id number] documented as of this encounter Goals Goal Patient Goal Type Associated Problems Recent Progress Patient-Stated? Author Maintain a healthy diet, exercise regularly and maintain an ideal body weight General No Nel Madden RMA documented as of this encounter Visit Diagnoses Diagnosis Closed displaced fracture of lateral malleolus of left fibula, initial encounter- Primary documented in this encounter Orders Outpatient Referral Count Last Ordered Date Fir st Ordered Date AMB REFERRAL TO EXTERNAL DME PROVIDER 1 12/2024 documented in this encounter Care Teams Front Attendant Relationship Specialty Start Date End Date No Pcp, Per Patient PCP - General 09/29/24 documented as of this encounter
--- OUTSIDE RECORDS SUMMARY | 2025-03-01 00:15 | XMS_ITS | Encounter Summary ---
Author Organization [facility] [place] [address] Care Team Providers Care Child Caregiver Name Role Phone No Pcp, Per Patient Primary Care Provider Iva franco Reason for Visit * Reason Onset Date Comments Patient Question 02/24/2025 Encounter Details Date Type Department Care Team (Late Contact Info) Description 02/24/2025 Telephone [facility] [address] [place] [address] Barron Pickett MD [address] [place] [address] Patient Question Social History Tobacco Use Types [...] encounter Miscellaneous Notes * Telephone Encounter - Vee Meza PA - 02/24/2025 12:41 AM EST Patient called in regards to her pain level s/p ORIF to left lateral malleolus. States her nerve block is beginning to wear off and is having sudden increase in pain. documented in this encounter Plan of Treatment Upcoming Encounters Date Type Department Care Team (Late st Contact Info) Description 03/05/2025 9:30 AM EST Office Visit [facility] [address] [place] [address] Ulises Ayoub PA [address] [place] [address] documented as of this encounter Goals Goal Patient Goal Type Associated Problems Recent Progress Patient-Stated? Author Maintain a healthy diet, exercise regularly and maintain an ideal body weight General No Nel Madden RMA documented as of this encounter Visit Diagnoses Not on filedocumented in this encounter Care Teams Child Caregiver Relationship Specialty Start Date End Date No Pcp, Per Patient PCP - General 09/29/24 documented as of this encounter
--- OUTSIDE RECORDS SUMMARY | 2025-03-01 00:15 | XMS_ITS | Encounter Summary ---
Author Organization [facility] Address [address] [place] [address] Care Team Providers Care Automatic Spinning Lathe Operator Name Role Phone No Pcp, Per Patient Primary Care Provider Iva franco Reason for Visit * Reason Onset Date Comments Advice Only 02/21/2025 Encounter Details Date Type Department Care Team (Late st Contact Info) Description 02/21/2025 Telephone [facility] [address] [place] [address] Barron Pickett MD [address] [place] [address] Advice Only Social History Tobacco Use Types Packs/Day Years [...] Valenzuela MA * Does this person have difficulty [...] encounter Miscellaneous Notes * Telephone Encounter - Hodan Sanchez, Clerical Staff - 02/21/2025 2:32 PM EST LVM with patient advising of 0600 arrival for 02/22 TARAS sx. Requested a call back for confirmation documented in this encounter Plan of Treatment Upcoming Encounters Date Type Department Care Team (Late st Contact Info) Description 03/05/2025 9:30 AM EST Office Visit [facility] [address] [place] [address] Ulises Ayoub PA [address] [place] [address] documented as of this encounter Goals Goal Patient Goal Type Associated Problems Recent Progress Patient-Stated? Author Maintain a healthy diet, exercise regularly and maintain an ideal body weight General No Nel Madden RMA documented as of this encounter Visit Diagnoses Not on filedocumented in this encounter Care Teams Automatic Spinning Lathe Operator Relationship Specialty Start Date End Date No Pcp, Per Patient PCP - General 09/29/24 documented as of this encounter
--- OUTSIDE RECORDS SUMMARY | 2025-03-01 00:15 | XMS_ITS | Encounter Summary ---
Author Organization [facility] Address [address] [place] [address] Care Team Providers Care Parliamentary Counsel Name Role Phone No Pcp, Per Patient Primary Care Provider Iva franco Encounter Details Date Type Department Care Team (Late st Contact Info) Description 02/20/2025 [place] [address] Barron Pickett MD [address] [place] [address] Closed displaced fracture of lateral malleolus of [...] Description 03/05/2025 9:30 AM EST Office Visit [address] [address] Ulises Ayoub PA [address] [place] [address] Scheduled Orders Name Type Priority Associated Diagnoses Orde r Schedule SURGICAL/PROCEDURE CASE REQUEST - [facility] Procedures Routine Closed displaced fracture of lateral malleolus of left fibula, initial encounter Ordered: 02/20/2025 documented as of this encounter Goals Goal Patient Goal Type Associated Problems Recent Progress Patient-Stated? Author Maintain a healthy diet, exercise regularly and maintain an ideal body weight General No Nel Madden RMA documented as of this encounter Visit Diagnoses Diagnosis Closed displaced fracture of lateral malleolus of left fibula, initial encounter- Primary documented in this encounter Care Teams Parliamentary Counsel Relationship Specialty Start Date End Date No Pcp, Per Patient PCP - General 09/29/24 documented as of this encounter
--- OUTSIDE RECORDS SUMMARY | 2025-03-01 00:15 | XMS_ITS | Encounter Summary ---
Author Organization [facility] Address [address] [place] [address] Care Team Providers Care Twister Tender Paper Name Role Phone No Pcp, Per Patient Primary Care Provider Iva franco Reason for Visit * Reason Onset Date Comments Patient Question 02/20/2025 Encounter Details Date Type Department Care Team (Late st Contact Info) Description 02/20/2025 Telephone [facility] [address] [place] [address] Barron Pickett MD [address] [place] [address] Patient Question Social History Tobacco Use Types [...] Date Author No 10/02/2021 3:09 PM Freida aYñez MA documented in this encounter Ordered Prescriptions Prescription Sig Dispense Quantity Refills Last Filled Start Date End Date oxyCODONE-acetamin ophen (PERCOCET) 5-325 mg Oral TabletIndications: Closed displaced fracture of lateral malleolus of left fibula, initial encounter Take 1 Tablet by mouth every 8 hours as needed for Acute Pain (R52). 21 Tablet 02/20/2025 02/22/2025 documented in this encounter Miscellaneous Notes * Telephone Encounter - Barron Pickett MD - 02/20/2025 1:13 PM EST signed * Telephone Encounter - Barron Lozada ATC - 02/20/2025 11:54 AM EST Spoke with lorie and she was requesting a order for a walker and shower seat. She also requested a change in pharmacy. Medicine was sent yesterday but did not roller picker as she is staying with family. Order sent to Dr. Pickett to approve. * Telephone Encounter - Dandre Aldrich, Clerical Staff - 02/20/2025 11:22 AM EST She is calling to see if she can have an order for some type of rolling walker with a seat prior toher surgery. Please call back documented in this encounter Plan of Treatment Upcoming Encounters Date Type Department Care Team (Late st Contact Info) Description 03/05/2025 9:30 [place] [address] Ulises Ayoub PA [address] [place] [address] documented as of this encounter Goals Goal Patient Goal Type Associated Problems Recent Progress Patient-Stated? Author Maintain a healthy diet, exercise regularly and maintain an ideal body weight General No Nel Madden, SYDNEE documented as of this encounter Visit Diagnoses Diagnosis Closed displaced fracture of lateral malleolus of left fibula, initial encounter- Primary documented in this encounter Discontinued Medications Medication Sig Discontinue Reason Start Date End Da te oxyCODONE-acetaminophen (PERCOCET) 5-325 mg Oral TabletIndications:Closed displaced fracture of lateral malleolus of left fibula, initial encounter Take 1 Tablet by mouth every 8 hours as needed for Acute Pain (R52) for up to 7 days. DELETE-Duplicate 02/19/2025 02/20/2025 documented as of this encounter Care Teams Twister Tender Paper Relationship Specialty Start Date End Date No Pcp, Per Patient PCP - General 09/29/24 documented as of this encounter
--- OUTSIDE RECORDS SUMMARY | 2025-03-01 00:15 | XMS_ITS | Encounter Summary ---
Author Organization [facility] Address [address] [place] [address] Care Team Providers Care Sheet Metal Shop Foreman Name Role Phone No Pcp, Per Patient Primary Care Provider Iva franco Reason for Visit * Reason Onset Date Comments Error 02/21/2025 ERROR Encounter Details Date Type Department Care Team (Late st Contact Info) Description 02/21/2025 Telephone [facility] [address] [place] [address] Ernesto Bob MD [address] [place] [address] Error (ERROR) Social History Tobacco Use Types Packs/Day Years [...] documented in this encounter Miscellaneous Notes * Addendum Note - Hodan Sanchez, Clerical Staff - 02/21/2025 2:32 PM EST Addended by: HODAN SANCHEZ on: 02/21/2025 02:32 PM Modules accepted: Orders, Level of Service * Telephone Encounter - Hodan Sanchez Clerical Staff - 02/21/2025 2:32 PM EST This encounter was created in error - please disregard. documented in this encounter Plan of Treatment Upcoming Encounters Date Type Department Care Team (Late st Contact Info) Description 03/05/2025 9:30 AM [place] [address] Ulises Ayoub PA [address] [place] [address] documented as of this encounter Goals Goal Patient Goal Type Associated Problems Recent Progress Patient-Stated? Author Maintain a healthy diet, exercise regularly and maintain an ideal body weight General No Nel Madden, SYDNEE documented as of this encounter Visit Diagnoses Diagnosis ERRONEOUS ENCOUNTER--DISREGARD- Primary documented in this encounter Care Teams Sheet Metal Shop Foreman Relationship Specialty Start Date End Date No Pcp, Per Patient PCP - General 09/29/24 documented as of this encounter
--- OUTSIDE RECORDS SUMMARY | 2025-03-01 00:15 | XMS_ITS | Encounter Summary ---
Author Organization [facility] Address [address] [place] [address] Care Team Providers Care Metal Finish Inspector Name Role Phone No Pcp, Per Patient Primary Care Provider Iva franco Reason for Visit * Reason Onset Date Comments Referral Follow-up 02/20/2025 Encounter Details Date Type Department Care Team (Late st Contact Info) Description 02/20/2025 Telephone [facility] [address] [place] [address] Barron Pickett MD [address] [place] [address] Referral Follow-up Social History Tobacco Use Types Packs/Day Years [...] Encounter - Barron Lozada ATC - 02/20/2025 3:30 PM EST Confirmed DME order was sent to fax number provided * Telephone Encounter - Melinda Juarez - 02/20/2025 3:19 PM ESTSummary: DME Referral Patient is wanting to know if you can fax referral for the patients DME equipment please call patient and let them know if this has been done. documented in this encounter Plan of Treatment Upcoming Encounters Date Type Department Care Team (Late st Contact Info) Description 03/05/2025 9:30 [place] [address] Ulises Ayoub PA [address] [place] [address] documented as of this encounter Goals Goal Patient Goal Type Associated Problems Recent Progress Patient-Stated? Author Maintain a healthy diet, exercise regularly and maintain an ideal body weight General No Nel Madden RMA documented as of this encounter Visit Diagnoses Not on filedocumented in this encounter Care Teams Metal Finish Inspector Relationship Specialty Start Date End Date No Pcp, Per Patient PCP - General 09/29/24 documented as of this encounter
--- OUTSIDE RECORDS SUMMARY | 2025-03-01 00:15 | XMS_ITS | Encounter Summary ---
Author Organization [facility] Address [address] [place] [address] Care Team Providers Care Paving Foreman Name Role Phone No Pcp, Per Patient Primary Care Provider Iva franco Reason for Visit * Reason Onset Date Comments Medication Refill 02/25/2025 Encounter Details Date Type Department Care Team (Late st Contact Info) Description 02/25/2025 Telephone [facility] [address] [place] [address] Barron Pickett MD [address] [place] [address] Medication Refill Social History Tobacco Use Types [...] Telephone Encounter - Barron Lozada ATC - 02/25/2025 5:19 PM EST PA was completed and Made patient aware * Telephone Encounter - Aneta Valera, Clerical Staff - 02/25/2025 4:22 PM EST Pt says she needs you to get Authorization on her pain medication jazmín. documented in this encounter Plan of Treatment Upcoming Encounters Date Type Department Care Team (Late st Contact Info) Description 03/05/2025 9:30 [place] [address] Ulises Ayoub PA [address] [place] [address] documented as of this encounter Goals Goal Patient Goal Type Associated Problems Recent Progress Patient-Stated? Author Maintain a healthy diet, exercise regularly and maintain an ideal body weight General No Nel Madden RMA documented as of this encounter Visit Diagnoses Not on filedocumented in this encounter Care Teams Paving Foreman Relationship Specialty Start Date End Date No Pcp, Per Patient PCP - General 09/29/24 documented as of this encounter
[2025-03-01 00:45] VITALS: BP 160/100; PULSE 80; RESP 20; TEMP 36.7; O2SAT 98
== END 2025-03-01 00:49 | disposition home or self-care (01) ==
PROVIDERS: Emergency Provider Emergency Medicine; PCP Family Medicine
DX: Z47.89 Encounter for other orthopedic aftercare (principal)
CPT/HCPCS: 29515; 99282